=== PATIENT | male | born 1965 | race Caucasian/White ===

== ENCOUNTER 2019-04-13 11:23 | Inpatient (IN) | payer MEDICAID ==
[~2019-04-13] VITALS: Ht 172.7 cm; Wt 68.6 kg
[~2019-04-13 11:23] MED LIST: MOME17SP BOTHNARES; rocuronium 10mg/ml inj IV ONE
[2019-04-13] MEDS ORDERED: normal saline 1000ML IV soln IVB ONE (11:30)
[2019-04-13] MEDS ORDERED: methylPREDNISolone sod succ 125mg/2ml vial IV ONE (11:30)
[2019-04-13] MEDS ORDERED: albuterol 2.5 MG/3 ML nebule CONTNEB PRN (11:35)
--- NOTE | 2019-04-13 11:41 | NUR ---
Rt at bedside,patient receiving breathing treatment.Hold off intubation per Dr. Mccloud.
[2019-04-13 11:55] LABS: BASOPHILS # (AUTO) 0.1 X10'3 (0-0.2); BASOPHILS % (AUTO) 0.9 % (0-1); EOSINOPHILS # (AUTO) 0.1 X10'3 (0-0.9); EOSINOPHILS % (AUTO) 1.6 % (0-6); HEMATOCRIT 47.4 % (42.0-52.0); HEMOGLOBIN 15.8 g/dl (14.0-17.9); LYMPHOCYTES % (AUTO) 43.1 % (21-51); MEAN CORPUSCULAR HEMOGLOBIN 31.7 PG (27.0-31.0); MEAN CORPUSCULAR HGB CONC 33.2 g/dL (33.0-36.5); MEAN CORPUSCULAR VOLUME 95.4 FL (78-98); MEAN PLATELET VOLUME 9.1 FL (7.4-10.4); MONOCYTES # (AUTO) 0.9 X10'3 (0-0.9); MONOCYTES % (AUTO) 9.3 % (2-12); NEUTROPHILS # (AUTO) 4.1 X10'3 (1.8-7.7); NEUTROPHILS % (AUTO) 45.1 % (42-75); PLATELET COUNT 230 X10'3 (140-440); RED BLOOD COUNT 4.97 X10'6 (4.70-6.10); RED CELL DISTRIBUTION WIDTH 14.3 % (11.5-14.5); WHITE BLOOD COUNT 9.2 X10'3 (4.5-11.0)
[2019-04-13 11:55] LABS: ABG BASE EXCESS -0.2 mmol/L (-2.0-3.0); ABG HCO3 25.1 mmol/L (22.0-26.0); ABG OXYGEN SATURATION 91.9 % (95-98); ABG PCO2 (T) 43.3 mmHg (35.0-45.0); ABG PH (T) 7.381 (7.350-7.450); ABG PO2 (T) 62.9 mmHg (83-108); ALLEN'S TEST Positive; FCOHb 2.3 % (0.5-1.5); FLOW 8 L/min; FMetHb 0.3 % (0.3-1.12); FO2Hb 89.5 % (94-100); TOTAL HEMOGLOBIN 14.9 G/dl (14.0-17.9)
--- NOTE | 2019-04-13 11:56 | NUR ---
patient started on bipap, and Dr. Mccloud at bedside. Addendum: 04/13/19 at 1202 by DANITZA patient on cpap,fio2 50% sating 100%.
--- NOTE | 2019-04-13 12:00 | NUR ---
Rt at bedside.
[2019-04-13 12:08] LABS: PARTIAL THROMBOPLASTIN TIME 25 SECONDS (22-32)
[2019-04-13] MEDS ORDERED: LIDOcaine 1% w/EPI 1:200,000 injection 10mL vial IM ONE (12:25)
[2019-04-13] MEDS ORDERED: ketamine 50 mg/ml 10ml vial IV ONE (12:25)
--- NOTE | 2019-04-13 12:31 | NUR ---
PATIENT'S : SUKUMAR [phone]
[2019-04-13] MEDS ORDERED: LIDOcaine 1% w/epiNEPHrine 1:200,000 30ml vial IM ONE (12:35)
[2019-04-13] MEDS ORDERED: LORazepam 2 mg/ml vial IV ONE (12:35)
[2019-04-13 12:37] LABS: ALANINE AMINOTRANSFERASE 240 U/L (12-78); ALBUMIN 3.3 G/DL (3.4-5.0); ALBUMIN/GLOBULIN RATIO 0.6 (1.1-1.5); ALKALINE PHOSPHATASE 218 IU/L (46-116); ANION GAP 11 (8-16); ASPARTATE AMINO TRANSFERASE 163 U/L (10-37); BILIRUBIN,TOTAL 0.2 MG/DL (0.1-1.0); BLOOD UREA NITROGEN 19 MG/DL (7-18); BUN/CREATININE RATIO 19.2 (5.4-32.0); CALCIUM 9.1 MG/DL (8.5-10.1); CHLORIDE 102 MMOL/L (99-107); CREATININE 0.99 MG/DL (0.60-1.10); GLUCOSE 127 MG/DL (70-104); SODIUM 141 MMOL/L (135-145); TOTAL CARBON DIOXIDE 27.7 MMOL/L (24-32); TOTAL PROTEIN 8.9 G/DL (6.4-8.2); eGFR 78 ML/MIN
--- NOTE | 2019-04-13 12:37 | NUR ---
Dr. Mccloud,RT at bedside.
--- NOTE | 2019-04-13 13:35 | NUR ---
I have reviewed and agree with all medications administered and interventions performed by [facility] Student Michael Rojas Addendum: 04/13/19 at 1336 by Radha Nazario RT Amended: Links added.
--- NOTE | 2019-04-13 14:29 | NUR ---
Patient on chest tube,low intermittent suction.asleep,Respirations regular,sating 97% on 2L.
[2019-04-13] MEDS ORDERED: acetaminophen 650mg rectal suppository RC PRN (15:10)
[2019-04-13] MEDS ORDERED: acetaminophen 325mg tablet PO PRN ×2 (15:10)
[2019-04-13] MEDS ORDERED: potassium Cl 20 mEq SR tablet PO PRN ×2 (15:10)
[2019-04-13] MEDS ORDERED: magnesium 4gm in 100ml NS 100 ML IV PRN (15:10)
[2019-04-13] MEDS ORDERED: mag hydrox/Alum hydrox/simeth 30ml oral suspension PO PRN (15:10)
[2019-04-13] MEDS ORDERED: morphine 2 MG/ML inj. syringe IV PRN ×2 (15:10)
[2019-04-13] MEDS ORDERED: magnesium 2GM in 50ml NS 50 ML IV PRN (15:10)
[2019-04-13] MEDS ORDERED: magnesium Cl slow-release 64mg tablet PO PRN (15:10)
[2019-04-13] MEDS ORDERED: HYDROcodone/acetaminophen 5mg/325mg tablet PO PRN (15:10)
[2019-04-13] MEDS: K and/or MAG REPLACEMENT MC SCH (15:10)
[2019-04-13] MEDS ORDERED: diphenhydrAMINE 25mg capsule PO PRN (15:10)
[2019-04-13] MEDS ORDERED: potassium CL 10mEq/100ml bag 100 ML IV PRN ×2 (15:10)
[2019-04-13] MEDS ORDERED: bisacodyl 10mg suppository rectal RC PRN (15:10)
[2019-04-13] MEDS: normal saline 1000ml 1,000 ML IV SCH (15:29)
[2019-04-13] MEDS: levoFLOXACIN-Levaquin 750MG/D5 150 ML IV SCH (15:29)
--- NOTE | 2019-04-13 15:35 | NUR ---
technology applications consultant at bedside.
[2019-04-13] MEDS: ondansetron/PF 4mg/2ml inj IV PRN (15:50)
[2019-04-13] MEDS ORDERED: NO HOME MEDS (16:12)
[2019-04-13] MEDS ORDERED: iohexol 350MG/ML 100ml bottle IV ONE (16:23)
--- NOTE | 2019-04-13 16:47 | NUR ---
PATIENT TO CT ACCOMPANIED BY RK LUNDBERG.
--- NOTE | 2019-04-13 17:21 | NUR ---
rECIEVED REPORT FROM Nikita international bank manager nurse pt will transfer up to rm 1421P
[2019-04-13] MEDS: HYDROcodone/acetaminophen 10/325mg tab PO PRN ×2 (17:47→22:08)
--- NOTE | 2019-04-13 17:58 | NUR ---
pt arrived to floor via gureny from ER @ 8036 A&Ox4 R CT in place c/o 11/20 pain medicated for pain. Dinner tray ordered. laying in POC
[2019-04-13 18:00] VITALS: BP 145/94
--- NOTE | 2019-04-13 18:19 | NUR ---
Problems reprioritized. Patient report given, questions answered & plan of care reviewed with JAQUELINE Goff.
--- NOTE | 2019-04-13 18:39 | NUR ---
Patient in room PCU 3016. I have received report from Genet Rojas RN and had the opportunity to ask questions and assume patient care.
[2019-04-13] MEDS: ipratropium/albuterol 3ml nebule NEB SCH ×2 (19:02→23:00)
[2019-04-13] MEDS: heparin, porcine 5000 units/ml vial SQ SCH (19:24)
[2019-04-13] MEDS: methylPREDNISolone sod succ 125mg/2ml vial IV SCH (19:25)
[2019-04-13 22:00] VITALS: BP 136/91
[2019-04-14] MEDS: normal saline 1000ml 1,000 ML IV SCH ×3 (01:38→20:23)
[2019-04-14] MEDS: methylPREDNISolone sod succ 125mg/2ml vial IV SCH ×4 (01:39→19:08)
[2019-04-14 02:02] LABS: CLARITY,URINE CLEAR (Clear); COLOR,URINE YELLOW (Yellow); GLUCOSE, URINE NEGATIVE (Neg); KETONES,URINE NEGATIVE (Neg); LEUKOCYTE ESTERASE ,URINE NEGATIVE (Neg); NITRITES, URINE NEGATIVE (Neg); OCCULT BLOOD,URINE NEGATIVE (Neg); PROTEIN,URINE NEGATIVE (Neg); UROBILINOGEN,URINE 0.2 E.U/dL (0.2-1.0)
[2019-04-14 02:07] LABS: UA COLLECTION TYPE NON-SPECIFIED
[2019-04-14 02:58] LABS: URINE AMPHETAMINE SCREEN POSITIVE (Neg); URINE BARBITUATE SCREEN NEGATIVE (Neg); URINE BENZODIAZEPINES SCREEN NEGATIVE (Neg); URINE CANNABINOID SCREEN POSITIVE (Neg); URINE COCAINE SCREEN NEGATIVE (Neg); URINE METHADONE SCREEN NEGATIVE (Neg); URINE OPIATE SCREEN POSITIVE (Neg); URINE PHENCYCLIDINE SCREEN NEGATIVE (Neg)
[2019-04-14] MEDS: ipratropium/albuterol 3ml nebule NEB SCH ×6 (03:00→23:00)
--- NOTE | 2019-04-14 05:15 | NUR ---
Orientee documentation: I have reviewed all interventions, assessments performed and documented by Vanita PARSONS. [place] Medication Administration: For this medication-pass time frame, all medication were reviewed, dispensed, administered and documented per hospital policy by Vanita PARSONS.
[2019-04-14 06:00] VITALS: BP 127/88
[2019-04-14 06:07] LABS: BASOPHILS # (AUTO) 0.1 X10'3 (0-0.2); BASOPHILS % (AUTO) 0.4 % (0-1); EOSINOPHILS % (AUTO) 0 % (0-6); HEMATOCRIT 44.2 % (42.0-52.0); HEMOGLOBIN 14.9 g/dl (14.0-17.9); LYMPHOCYTES # (AUTO) 1.2 X10'3 (1.1-4.8); LYMPHOCYTES % (AUTO) 8.5 % (21-51); MEAN CORPUSCULAR HEMOGLOBIN 31.6 PG (27.0-31.0); MEAN CORPUSCULAR HGB CONC 33.7 g/dL (33.0-36.5); MEAN PLATELET VOLUME 9.2 FL (7.4-10.4); MONOCYTES # (AUTO) 0.3 X10'3 (0-0.9); NEUTROPHILS # (AUTO) 12.7 X10'3 (1.8-7.7); NEUTROPHILS % (AUTO) 89.1 % (42-75); PLATELET COUNT 204 X10'3 (140-440); RED CELL DISTRIBUTION WIDTH 14.3 % (11.5-14.5); WHITE BLOOD COUNT 14.3 X10'3 (4.5-11.0)
--- NOTE | 2019-04-14 06:21 | NUR ---
Problems reprioritized. Patient report given, questions answered & plan of care reviewed with Cecilia RN.
[2019-04-14 06:43] LABS: HIV ANTIBODY 1&2 RAPID NON-REACTIVE (Neg)
[2019-04-14 06:52] LABS: ALANINE AMINOTRANSFERASE 193 U/L (12-78); ALBUMIN/GLOBULIN RATIO 0.6 (1.1-1.5); ALKALINE PHOSPHATASE 120 IU/L (46-116); ANION GAP 7 (8-16); ASPARTATE AMINO TRANSFERASE 110 U/L (10-37); BILIRUBIN,TOTAL 0.2 MG/DL (0.1-1.0); BLOOD UREA NITROGEN 17 MG/DL (7-18); BUN/CREATININE RATIO 20.7 (5.4-32.0); CALCIUM 8.9 MG/DL (8.5-10.1); CHLORIDE 102 MMOL/L (99-107); CHOL/HDL RATIO 2.4 (0.00-4.99); CHOLESTEROL 175 MG/DL (0-200); CREATININE 0.82 MG/DL (0.60-1.10); GLUCOSE 143 MG/DL (70-104); HDL CHOLESTEROL 72 MG/DL (35-60); LDL CHOLESTEROL 96 MG/DL (50-100); MAGNESIUM 1.7 MG/DL (1.5-2.4); PHOSPHORUS 3.6 MG/DL (2.3-4.5); SODIUM 139 MMOL/L (135-145); TOTAL PROTEIN 8.3 G/DL (6.4-8.2); TRIGLYCERIDES 53 MG/DL (20-135); eGFR > 90 ML/MIN
--- NOTE | 2019-04-14 06:52 | NUR ---
Patient in room U 3016. I have received report from JAQUELINE Goff and had the opportunity to ask questions and assume patient care. Pt sleeping. In no apparent distress. Will continue to monitor.
--- NOTE | 2019-04-14 07:45 | NUR ---
DR ALATORRE CONTACTED REGARDING PT CT DISCONNECTING FROM PT. RAPID CALLED. DR ALATORRE NOT INVOLVED WITH PT. WILL CALL DR DIAZ.
--- NOTE | 2019-04-14 07:46 | NUR ---
PAGER ID: [phone] MESSAGE: rapid called on [id number] Tyree chest tube disconnected. pt in distress. DENNYS BROWNING
--- NOTE | 2019-04-14 07:50 | NUR ---
DR DIAZ CALLED BACK SITUATION EXPLAINED. DR DIAZ STATED THAT DR HOLGUIN AND DR ALATORRE HAVE BEEN CONSULTED IN ER YESTERDAY.
[2019-04-14] MEDS: K and/or MAG REPLACEMENT MC SCH (08:00)
[2019-04-14] MEDS: HYDROcodone/acetaminophen 10/325mg tab PO PRN (08:10)
[2019-04-14] MEDS: heparin, porcine 5000 units/ml vial SQ SCH ×2 (08:15→19:09)
[2019-04-14] MEDS: levoFLOXACIN-Levaquin 750MG/D5 150 ML IV SCH (08:16)
[2019-04-14 11:00] VITALS: BP 127/85
--- NOTE | 2019-04-14 12:56 | NUR ---
Malnutrition consult: Pt seen at bedside reports UBW 140-150 lbs, current documented wt is 151 lbs however is a pt stated wt. Pt reports no wt loss of concern at this time and endorses a good appetite which is evident with documented 100% PO intake on heart healthy diet meeting nutrient needs. Pt with no significant decrease in muscle strength, edema, or visible fat/muscle wasting. Pt currently does not meet criteria for malnutrition. Pt reports no food allergies and states difficulty chewing d/t missing teeth. Pt agrees to soft to chew food. Pt states he isn't getting full from meals and agrees to double meat BIDLD, Greenlandic yogurt BIDBD, and cottage cheese QD with lunch for satiety. All food preferences d/w dietary. No documented LBM however pt denies constipation/diarrhea and reports LBM 04/13 [employer]. Will continue to follow. Addendum: 04/14/19 at [address] Amended: Links added.
--- NOTE | 2019-04-14 15:00 | NUR ---
Pt refused 1500 VS
--- NOTE | 2019-04-14 16:20 | NUR ---
Patient in room PCU 3016. I have received report from Cecilia PARSONS and had the opportunity to ask questions and assume patient care.
--- NOTE | 2019-04-14 16:21 | NUR ---
Problems reprioritized. Patient report given, questions answered & plan of care reviewed with JAQUELINE Martin.
[2019-04-14 18:00] VITALS: BP 162/83
--- NOTE | 2019-04-14 18:00 | NUR ---
Patient in room PCU 3016. I have received report from Mario PARSONS and had the opportunity to ask questions and assume patient care.
[2019-04-14] MEDS: lactobacillus rhamnosus 10,000 MMU CELLS/CAPSULE PO SCH (19:08)
[2019-04-14 22:00] VITALS: BP 122/65
[2019-04-15] MEDS: methylPREDNISolone sod succ 125mg/2ml vial IV SCH ×3 (01:04→15:03)
--- NOTE | 2019-04-15 02:00 | NUR ---
Refuses 0200 vital signs. Patient doesn't like to be bothered at night. Was able to give 0200 medication.
[2019-04-15] MEDS: ipratropium/albuterol 3ml nebule NEB SCH ×6 (03:00→23:00)
--- NOTE | 2019-04-15 05:31 | NUR ---
END NOC NOTE Patient slept well tonight, refused all respiratory treatments for the shift and 0200 vital signs. Will continue to monitor.
[2019-04-15 05:59] LABS: BASOPHILS % (AUTO) 0.1 % (0-1); EOSINOPHILS % (AUTO) 0 % (0-6); HEMATOCRIT 42.6 % (42.0-52.0); HEMOGLOBIN 14.2 g/dl (14.0-17.9); LYMPHOCYTES # (AUTO) 1.2 X10'3 (1.1-4.8); LYMPHOCYTES % (AUTO) 6.3 % (21-51); MEAN CORPUSCULAR HEMOGLOBIN 31.5 PG (27.0-31.0); MEAN CORPUSCULAR HGB CONC 33.3 g/dL (33.0-36.5); MEAN CORPUSCULAR VOLUME 94.4 FL (78-98); MEAN PLATELET VOLUME 9.5 FL (7.4-10.4); MONOCYTES # (AUTO) 0.4 X10'3 (0-0.9); MONOCYTES % (AUTO) 2.1 % (2-12); NEUTROPHILS # (AUTO) 17.8 X10'3 (1.8-7.7); NEUTROPHILS % (AUTO) 91.5 % (42-75); PLATELET COUNT 194 X10'3 (140-440); RED BLOOD COUNT 4.52 X10'6 (4.70-6.10); RED CELL DISTRIBUTION WIDTH 14.1 % (11.5-14.5); WHITE BLOOD COUNT 19.5 X10'3 (4.5-11.0)
[2019-04-15 06:00] VITALS: BP 121/80
--- NOTE | 2019-04-15 06:05 | NUR ---
Patient in room PCU 3016B. I have received report from Claire PARSONS and had the opportunity to ask questions and assume patient care.
[2019-04-15 06:41] LABS: ALANINE AMINOTRANSFERASE 142 U/L (12-78); ALBUMIN 2.7 G/DL (3.4-5.0); ALBUMIN/GLOBULIN RATIO 0.6 (1.1-1.5); ALKALINE PHOSPHATASE 90 IU/L (46-116); ANION GAP 4 (8-16); ASPARTATE AMINO TRANSFERASE 67 U/L (10-37); BILIRUBIN,TOTAL 0.3 MG/DL (0.1-1.0); BLOOD UREA NITROGEN 14 MG/DL (7-18); BUN/CREATININE RATIO 17.9 (5.4-32.0); CALCIUM 8.8 MG/DL (8.5-10.1); CHLORIDE 101 MMOL/L (99-107); CREATININE 0.78 MG/DL (0.60-1.10); GLUCOSE 140 MG/DL (70-104); MAGNESIUM 1.9 MG/DL (1.5-2.4); PHOSPHORUS 2.8 MG/DL (2.3-4.5); POTASSIUM 4.2 MMOL/L (3.5-5.1); SODIUM 135 MMOL/L (135-145); eGFR > 90 ML/MIN
--- NOTE | 2019-04-15 06:41 | NUR ---
Problems reprioritized. Patient report given, questions answered & plan of care reviewed with Griselda PARSONS.
[2019-04-15] MEDS: normal saline 1000ml 1,000 ML IV SCH (07:10)
[2019-04-15] MEDS: K and/or MAG REPLACEMENT MC SCH (08:00)
[2019-04-15] MEDS: heparin, porcine 5000 units/ml vial SQ SCH ×2 (08:26→19:56)
[2019-04-15] MEDS: lactobacillus rhamnosus 10,000 MMU CELLS/CAPSULE PO SCH ×2 (08:27→19:51)
[2019-04-15] MEDS: levoFLOXACIN-Levaquin 750MG/D5 150 ML IV SCH (08:27)
--- NOTE | 2019-04-15 10:57 | NUR ---
Order from Ayala Villegas for daily single view chest xrays while chest tube is in.
[2019-04-15 11:00] VITALS: BP 123/82
--- NOTE | 2019-04-15 11:31 | NUR ---
Paged hospitalist, Dr. Dionne CADENA daily CXR PAGER ID: [phone] MESSAGE: Anu x [phone]. RE Hortencia Clements 3016B. FYI new daily CXR resulted. Thank you!
[2019-04-15 12:20] LABS: HBSAG SCREEN Negative (Negative); HEP A AB, IGM Negative (Negative); HEP B CORE AB, IGM Negative (Negative); HEPATITIS C ANTIBODY >11.0 s/co ratio (0.0-0.9)
[2019-04-15 15:00] VITALS: BP 126/76
[2019-04-15] MEDS: HYDROcodone/acetaminophen 10/325mg tab PO PRN (15:03)
--- NOTE | 2019-04-15 18:00 | NUR ---
Patient in room PCU 3016. I have received report from Griselda PARSONS and had the opportunity to ask questions and assume patient care.
--- NOTE | 2019-04-15 18:05 | NUR ---
Problems reprioritized. Patient report given, questions answered & plan of care reviewed with Harper PARSONS.
--- NOTE | 2019-04-15 18:23 | NUR ---
New hire documentation: I have reviewed and agree with all interventions, assessments performed and documented by Anu PARSONS.
[2019-04-15 22:00] VITALS: BP 159/94
[2019-04-16] VITALS: BP 143/99
[2019-04-16] MEDS: methylPREDNISolone sod succ 125mg/2ml vial IV SCH ×3 (00:07→15:21)
[2019-04-16] MEDS: normal saline 1000ml 1,000 ML IV SCH ×2 (00:53→21:10)
[2019-04-16] MEDS: ipratropium/albuterol 3ml nebule NEB SCH ×6 (03:00→23:00)
--- NOTE | 2019-04-16 05:22 | NUR ---
END NOC NOTE Patient slept well tonight, only agreed to 2200 vitals, HR spiked to 140s when patient stood up at the side of the bed to use the urinal. Will continue to monitor.
[2019-04-16 06:00] VITALS: BP 152/99
[2019-04-16 06:10] LABS: BASOPHILS % (AUTO) 0.2 % (0-1); EOSINOPHILS % (AUTO) 0 % (0-6); HEMATOCRIT 43.3 % (42.0-52.0); HEMOGLOBIN 14.3 g/dl (14.0-17.9); LYMPHOCYTES % (AUTO) 5.9 % (21-51); MEAN CORPUSCULAR HEMOGLOBIN 31.2 PG (27.0-31.0); MEAN CORPUSCULAR VOLUME 94.5 FL (78-98); MEAN PLATELET VOLUME 9.3 FL (7.4-10.4); MONOCYTES # (AUTO) 0.5 X10'3 (0-0.9); MONOCYTES % (AUTO) 2.9 % (2-12); NEUTROPHILS # (AUTO) 15.9 X10'3 (1.8-7.7); PLATELET COUNT 178 X10'3 (140-440); RED BLOOD COUNT 4.58 X10'6 (4.70-6.10); RED CELL DISTRIBUTION WIDTH 14.1 % (11.5-14.5); WHITE BLOOD COUNT 17.4 X10'3 (4.5-11.0)
--- NOTE | 2019-04-16 06:20 | NUR ---
Patient in room PCU 3016Y. I have received report from Harper PARSONS and had the opportunity to ask questions and assume patient care. Patient laying in bed, eyes closed. Chest tube to suction at 10. IV fluids infusing @ 50mL/hr.
--- NOTE | 2019-04-16 06:32 | NUR ---
Problems reprioritized. Patient report given, questions answered & plan of care reviewed with Griselda PARSONS.
[2019-04-16 06:39] LABS: ALANINE AMINOTRANSFERASE 186 U/L (12-78); ALBUMIN 2.7 G/DL (3.4-5.0); ALBUMIN/GLOBULIN RATIO 0.6 (1.1-1.5); ALKALINE PHOSPHATASE 93 IU/L (46-116); ANION GAP 3 (8-16); ASPARTATE AMINO TRANSFERASE 103 U/L (10-37); BILIRUBIN,TOTAL 0.3 MG/DL (0.1-1.0); BLOOD UREA NITROGEN 17 MG/DL (7-18); BUN/CREATININE RATIO 21.8 (5.4-32.0); CALCIUM 8.6 MG/DL (8.5-10.1); CHLORIDE 103 MMOL/L (99-107); CREATININE 0.78 MG/DL (0.60-1.10); GLUCOSE 131 MG/DL (70-104); MAGNESIUM 1.9 MG/DL (1.5-2.4); POTASSIUM 4.5 MMOL/L (3.5-5.1); SODIUM 139 MMOL/L (135-145); TOTAL PROTEIN 7.1 G/DL (6.4-8.2); eGFR > 90 ML/MIN
[2019-04-16] MEDS: K and/or MAG REPLACEMENT MC SCH (08:00)
[2019-04-16] MEDS: levoFLOXACIN-Levaquin 750MG/D5 150 ML IV SCH (08:11)
[2019-04-16] MEDS: heparin, porcine 5000 units/ml vial SQ SCH ×2 (08:12→21:08)
[2019-04-16] MEDS: lactobacillus rhamnosus 10,000 MMU CELLS/CAPSULE PO SCH ×2 (08:12→21:08)
[2019-04-16] MEDS: HYDROcodone/acetaminophen 10/325mg tab PO PRN (08:12)
[2019-04-16 11:00] VITALS: BP 141/95
[2019-04-16 15:00] VITALS: BP 153/94
--- NOTE | 2019-04-16 17:49 | NUR ---
New hire documentation: I have reviewed and agree with all interventions, assessments performed and documented by Anu PARSONS.
[2019-04-16 18:00] VITALS: BP 144/97
--- NOTE | 2019-04-16 18:00 | NUR ---
Patient in room PCU 3016. I have received report from Griselda PARSONS and had the opportunity to ask questions and assume patient care.
--- NOTE | 2019-04-16 18:12 | NUR ---
Problems reprioritized. Patient report given, questions answered & plan of care reviewed with Harper PARSONS.
[2019-04-17] VITALS: BP 155/127
[2019-04-17] MEDS: methylPREDNISolone sod succ 125mg/2ml vial IV SCH ×3 (00:20→15:42)
[2019-04-17] MEDS: ipratropium/albuterol 3ml nebule NEB SCH ×6 (03:00→23:00)
[2019-04-17 05:25] LABS: BASOPHILS % (AUTO) 0.1 % (0-1); EOSINOPHILS % (AUTO) 0 % (0-6); HEMATOCRIT 44.1 % (42.0-52.0); HEMOGLOBIN 14.8 g/dl (14.0-17.9); LYMPHOCYTES # (AUTO) 1.2 X10'3 (1.1-4.8); LYMPHOCYTES % (AUTO) 7.7 % (21-51); MEAN CORPUSCULAR HEMOGLOBIN 31.3 PG (27.0-31.0); MEAN CORPUSCULAR HGB CONC 33.6 g/dL (33.0-36.5); MEAN CORPUSCULAR VOLUME 93.2 FL (78-98); MEAN PLATELET VOLUME 9.4 FL (7.4-10.4); MONOCYTES # (AUTO) 0.4 X10'3 (0-0.9); MONOCYTES % (AUTO) 2.7 % (2-12); NEUTROPHILS # (AUTO) 13.6 X10'3 (1.8-7.7); NEUTROPHILS % (AUTO) 89.5 % (42-75); PLATELET COUNT 182 X10'3 (140-440); RED BLOOD COUNT 4.73 X10'6 (4.70-6.10); RED CELL DISTRIBUTION WIDTH 14.2 % (11.5-14.5); WHITE BLOOD COUNT 15.2 X10'3 (4.5-11.0)
[2019-04-17 06:00] VITALS: BP 141/97
[2019-04-17 06:01] LABS: ALANINE AMINOTRANSFERASE 194 U/L (12-78); ALBUMIN 2.7 G/DL (3.4-5.0); ALBUMIN/GLOBULIN RATIO 0.6 (1.1-1.5); ALKALINE PHOSPHATASE 93 IU/L (46-116); ANION GAP 8 (8-16); ASPARTATE AMINO TRANSFERASE 94 U/L (10-37); BILIRUBIN,TOTAL 0.3 MG/DL (0.1-1.0); BLOOD UREA NITROGEN 20 MG/DL (7-18); BUN/CREATININE RATIO 24.7 (5.4-32.0); CALCIUM 8.5 MG/DL (8.5-10.1); CHLORIDE 101 MMOL/L (99-107); CREATININE 0.81 MG/DL (0.60-1.10); GLUCOSE 144 MG/DL (70-104); MAGNESIUM 1.8 MG/DL (1.5-2.4); PHOSPHORUS 2.8 MG/DL (2.3-4.5); POTASSIUM 4.4 MMOL/L (3.5-5.1); SODIUM 137 MMOL/L (135-145); TOTAL CARBON DIOXIDE 28.4 MMOL/L (24-32); TOTAL PROTEIN 7.1 G/DL (6.4-8.2); eGFR > 90 ML/MIN
--- NOTE | 2019-04-17 06:21 | NUR ---
Problems reprioritized. Patient report given, questions answered & plan of care reviewed with Pilar RN, Jessica RN.
--- NOTE | 2019-04-17 06:32 | NUR ---
Patient in room PCU 3016. I have received report from JAQUELINE Gonzalez and had the opportunity to ask questions and assume patient care.
--- NOTE | 2019-04-17 06:41 | NUR ---
Patient in room [facility] 3016. I have received report from Harper PARSONS and had the opportunity to ask questions and assume patient care. Patient awake in bed with no complaints at this time. All immediate needs met. Addendum: 04/17/19 at 1818 by Jessica Barros RN Problems reprioritized. Patient report given, questions answered & plan of care reviewed with JAQUELINE Gonzalez.
[2019-04-17] MEDS: heparin, porcine 5000 units/ml vial SQ SCH ×2 (08:00→20:30)
[2019-04-17] MEDS: levoFLOXACIN-Levaquin 750MG/D5 150 ML IV SCH (08:27)
[2019-04-17] MEDS: lactobacillus rhamnosus 10,000 MMU CELLS/CAPSULE PO SCH ×2 (08:29→20:30)
[2019-04-17] MEDS: K and/or MAG REPLACEMENT MC SCH (08:38)
[2019-04-17 11:00] VITALS: BP 146/100
[2019-04-17] MEDS: normal saline 1000ml 1,000 ML IV SCH (11:44)
[2019-04-17] MEDS ORDERED: famotidine/PF 10 mg/ml inj IV ONE (13:40)
[2019-04-17 15:00] VITALS: BP 127/100
[2019-04-17 18:00] VITALS: BP 138/90
--- NOTE | 2019-04-17 18:00 | NUR ---
Patient in room PCU 3016. I have received report from Jessica PARSONS and Pilar RN and had the opportunity to ask questions and assume patient care.
--- NOTE | 2019-04-17 18:25 | NUR ---
Problems reprioritized. Patient report given, questions answered & plan of care reviewed with Harper PARSONS. Patient stable at transfer of care.
--- NOTE | 2019-04-17 18:25 | NUR ---
[place]rientee documentation: I have reviewed and agree with all interventions, assessments performed and documented by JAQUELINE Lopez. [place] Medication Administration: For this medication-pass time frame, all medication were reviewed, dispensed, administered and documented per hospital policy by JAQUELINE Lopez.
[2019-04-17] MEDS: HYDROcodone/acetaminophen 10/325mg tab PO PRN (20:31)
[2019-04-18] VITALS (14 sets, daily range): BP systolic 105–182; BP diastolic 65–130
[2019-04-18] MEDS: methylPREDNISolone sod succ 125mg/2ml vial IV SCH ×4 (00:11→23:43)
[2019-04-18] MEDS: ipratropium/albuterol 3ml nebule NEB SCH ×5 (03:00→23:00)
--- NOTE | 2019-04-18 05:02 | NUR ---
END NOC NOTE Patient refused 2200 and 0200 vitals. Patient is nervous about procedure the procedure today in AM. Slept well tonight. Will continue to monitor.
[2019-04-18 05:28] LABS: BASOPHILS % (AUTO) 0.1 % (0-1); EOSINOPHILS % (AUTO) 0 % (0-6); HEMOGLOBIN 15.4 g/dl (14.0-17.9); LYMPHOCYTES # (AUTO) 1.2 X10'3 (1.1-4.8); MEAN CORPUSCULAR HEMOGLOBIN 31.4 PG (27.0-31.0); MEAN CORPUSCULAR HGB CONC 33.4 g/dL (33.0-36.5); MEAN CORPUSCULAR VOLUME 94.1 FL (78-98); MEAN PLATELET VOLUME 9.4 FL (7.4-10.4); MONOCYTES # (AUTO) 0.5 X10'3 (0-0.9); MONOCYTES % (AUTO) 4.1 % (2-12); NEUTROPHILS # (AUTO) 11.5 X10'3 (1.8-7.7); NEUTROPHILS % (AUTO) 86.8 % (42-75); PLATELET COUNT 186 X10'3 (140-440); RED BLOOD COUNT 4.89 X10'6 (4.70-6.10); WHITE BLOOD COUNT 13.3 X10'3 (4.5-11.0)
[2019-04-18] MEDS: normal saline 1000ml 1,000 ML IV SCH ×2 (06:17→14:17)
[2019-04-18 06:19] LABS: ALANINE AMINOTRANSFERASE 209 U/L (12-78); ALBUMIN 2.8 G/DL (3.4-5.0); ALBUMIN/GLOBULIN RATIO 0.6 (1.1-1.5); ALKALINE PHOSPHATASE 102 IU/L (46-116); ANION GAP 4 (8-16); ASPARTATE AMINO TRANSFERASE 77 U/L (10-37); BILIRUBIN,TOTAL 0.3 MG/DL (0.1-1.0); BLOOD UREA NITROGEN 20 MG/DL (7-18); BUN/CREATININE RATIO 23.3 (5.4-32.0); CALCIUM 8.6 MG/DL (8.5-10.1); CHLORIDE 101 MMOL/L (99-107); CREATININE 0.86 MG/DL (0.60-1.10); GLUCOSE 139 MG/DL (70-104); PHOSPHORUS 3.2 MG/DL (2.3-4.5); POTASSIUM 5.1 MMOL/L (3.5-5.1); SODIUM 136 MMOL/L (135-145); TOTAL CARBON DIOXIDE 31.4 MMOL/L (24-32); TOTAL PROTEIN 7.4 G/DL (6.4-8.2); eGFR > 90 ML/MIN
--- NOTE | 2019-04-18 06:27 | NUR ---
Problems reprioritized. Patient report given, questions answered & plan of care reviewed with Pilar PARSONS.
--- NOTE | 2019-04-18 06:44 | NUR ---
Patient in room PCU 3016. I have received report from Harper PARSONS and had the opportunity to ask questions and assume patient care. Patient awake in bed. All immediate needs met at this time.
[2019-04-18] MEDS: heparin, porcine 5000 units/ml vial SQ SCH ×2 (07:02→20:00)
--- NOTE | 2019-04-18 07:13 | NUR ---
Patient refused 0600 vitals.
[2019-04-18] MEDS: lactobacillus rhamnosus 10,000 MMU CELLS/CAPSULE PO SCH ×2 (07:24→19:40)
[2019-04-18] MEDS: levoFLOXACIN-Levaquin 750MG/D5 150 ML IV SCH (07:25)
[2019-04-18] MEDS ORDERED: LIDOcaine 1% (10mg/ml) 2ml vial ONE (07:37)
[2019-04-18] MEDS: K and/or MAG REPLACEMENT MC SCH (08:00)
--- NOTE | 2019-04-18 08:21 | NUR ---
Called report to PACU.
--- NOTE | 2019-04-18 10:00 | NUR ---
Orientee documentation: I have reviewed and agree with all interventions, assessments performed and documented by JAQUELINE Farnsworth. [place]ee Medication Administration: For this medication-pass time frame, all medication were reviewed, dispensed, administered and documented per hospital policy by Daja PARSONS.
--- NOTE | 2019-04-18 10:30 | NUR ---
Patient to OR.
[2019-04-18] MEDS ORDERED: sevoflurane 250ml liquid IH ONE (11:09)
[2019-04-18] MEDS ORDERED: propofol 10mg/ml 20ml vial IV ONE (11:09)
[2019-04-18] MEDS ORDERED: ceFAZolin 1GM/D5W- ADD-VANTAGE 50 ML IV ONE (11:10)
[2019-04-18] MEDS ORDERED: midazolam 2 mg/2 ml injection ONE (11:11)
[2019-04-18] MEDS ORDERED: fentaNYL /PF 50mcg/ml 5ml ampule ONE (11:13)
[2019-04-18] MEDS ORDERED: potassium Cl 20mEq in D5-NS 1,000 ML IV SCH (13:27)
[2019-04-18] MEDS ORDERED: morphine 10mg/ml inj. ONE (13:29)
[2019-04-18] MEDS ORDERED: HYDROmorphone 1 mg/ml syringe IV PRN (13:30)
[2019-04-18] MEDS ORDERED: naloxone 0.4 mg/ml inj IV PRN ×2 (13:30→14:20)
[2019-04-18] MEDS ORDERED: HYDROcodone/acetaminophen 10/325mg tab PO PRN (13:30)
[2019-04-18] MEDS ORDERED: ondansetron/PF 4mg/2ml inj IV PRN (13:30)
[2019-04-18] MEDS ORDERED: morphine 4 MG/ML inj SYRINge IV PRN ×2 (13:30)
[2019-04-18] MEDS ORDERED: metoclopramide 5 mg/ml inj IV PRN (13:30)
[2019-04-18] MEDS ORDERED: CADD PCA waste documentation MC PRN ×2 (13:30→14:20)
[2019-04-18] MEDS ORDERED: albuterol 2.5 MG/3 ML nebule NEB PRN (13:30)
[2019-04-18] MEDS ORDERED: sugammadex 200mg/2ml injection IV ONE (13:30)
[2019-04-18] MEDS ORDERED: ketamine 50mg/5ml syringe ONE (13:39)
--- NOTE | 2019-04-18 14:07 | NUR ---
Initial: Pt admit w/ pneumothorax positive for meth and opiates. 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 LBM 04/17. Pt 100% meals prior to OR. Will monitor for additional protein needs pending PO post-op. Rec: 1. continue heart healthy diet per MD post-op 2. monitor for ONS needs pending PO post-op 3. routine bowel care 4. wt per rx Addendum: 04/18/19 at [address] Amended: Links added.
[2019-04-18] MEDS ORDERED: hydrALAZINE 20mg/ml inj. IV PRN (14:15)
[2019-04-18] MEDS: HYDROmorphone/NS 1 mg/ml CADD 50 ML IV SCH ×2 (14:20→15:00)
[2019-04-18] MEDS ORDERED: glycopyrrolate 0.2mg/ml inj ONE (14:23)
[2019-04-18] MEDS ORDERED: dexamethasone sod phosphate 4mg/ml inj. ONE (14:23)
[2019-04-18] MEDS ORDERED: ondansetron/PF 4mg/2ml inj ONE (14:23)
[2019-04-18] MEDS: ketorolac trometh. 30mg/ml inj. IV SCH ×2 (14:23→19:40)
[2019-04-18] MEDS ORDERED: neostigmine methylsulfate 1 MG/ML 10ml vial ONE (14:23)
[2019-04-18] MEDS ORDERED: LIDOcaine 2% (20mg/ml) 5ml vial ONE (14:23)
[2019-04-18] MEDS ORDERED: ePHEDrine 50MG/ML INJ. ONE (14:23)
[2019-04-18] MEDS ORDERED: fentaNYL/PF 50MCG/1 ML 2ML syringe ONE (14:24)
[2019-04-18 14:40] LABS: ABG BASE EXCESS -1.7 mmol/L (-2.0-3.0); ABG HCO3 25.3 mmol/L (22.0-26.0); ABG OXYGEN SATURATION 99.1 % (95-98); ABG PCO2 (T) 51.3 mmHg (35.0-45.0); ABG PH (T) 7.311 (7.350-7.450); ABG PO2 (T) 159.1 mmHg (83-108); FCOHb 0.8 % (0.5-1.5); FLOW 9 L/min; FMetHb 0.3 % (0.3-1.12); TOTAL HEMOGLOBIN 15.5 G/dl (14.0-17.9)
[2019-04-18] MEDS ORDERED: morphine/PF injection 20 MG, BUPIVAcaine 0.5% inj/PF 250 MG in normal saline 250ml IV s... IV SCH (14:45)
[2019-04-18] MEDS ORDERED: naloxone 2mg/2ml inj 1.3 MG in normal saline 500ml IV soln 500 ML IV PRN (14:45)
[2019-04-18] MEDS ORDERED: [UNRECOGNIZED DRUG - OTHER] IV SCH (15:01)
[2019-04-18] MEDS ORDERED: MORPHINE IV SCH (15:01)
[2019-04-18] MEDS ORDERED: BUPIVACAINE IV SCH (15:01)
[2019-04-18] MEDS ORDERED: NORepinephrine 8mg/ 250ml NS 250 ML IV SCH (15:10)
[2019-04-18] MEDS: ceFAZolin 1GM/D5W- ADD-VANTAGE 50 ML IV SCH ×2 (15:34→23:43)
[2019-04-18 15:43] LABS: HEMOGLOBIN 13.3 g/dl (14.0-17.9); MEAN CORPUSCULAR HEMOGLOBIN 30.8 PG (27.0-31.0); MEAN CORPUSCULAR HGB CONC 32.5 g/dL (33.0-36.5); MEAN CORPUSCULAR VOLUME 94.7 FL (78-98); MEAN PLATELET VOLUME 9.1 FL (7.4-10.4); PLATELET COUNT 197 X10'3 (140-440); RED BLOOD COUNT 4.33 X10'6 (4.70-6.10); RED CELL DISTRIBUTION WIDTH 13.8 % (11.5-14.5); WHITE BLOOD COUNT 18.4 X10'3 (4.5-11.0)
[2019-04-18] MEDS ORDERED: ceFAZolin inj. 1,000 MG in dextrose 5%-water 50ml 50 ML IV SCH (16:00)
[2019-04-18] MEDS: morphine/PF injection 8 MG, BUPIVAcaine 0.5% inj/PF 100 MG in normal saline 100ml IV so... IV SCH (16:14)
--- NOTE | 2019-04-18 16:54 | NUR ---
Received pt straight from OR @1400. Pt in severe pain with BP >180s. 1mg dilaudid and 10 mg hydralazine administered. Anesthesiologist to bedside to place epidural. Epidural placed successfully. ABG drawn. O2 decreased and placed on NC. CADD not administered due to epidural placement. BP trending down after epidural placement, pt appears calm. CT output 400cc. H/H drawn and stable. Per Dr. Waldron, started levophed at 2mcg for mild hypotension. Able to turn off after 3 hrs. Pt mildly uncomfortable at site of chest tubes but responds appropriately and follows commands.
--- NOTE | 2019-04-18 18:31 | NUR ---
Problems reprioritized. Patient report given, questions answered & plan of care reviewed with JAQUELINE Henriquez.
--- NOTE | 2019-04-18 18:34 | NUR ---
Patient in room ICU 2038. I have received report from Ericka PARSONS, and had the opportunity to ask questions and assume patient care.
--- NOTE | 2019-04-18 19:30 | NUR ---
PT resting in bed with no s/s of distress noted at this time. VSS. PT receiving 1 L O2 to NC, tolerating well. O2 sat >94%. PT has Epidural for pain control, has been effective thus far. CTx2 to RT chest with sanguineous drainage noted in tubing. Gary in place draining to gravity. Bed is locked and low. Call light is within reach. Will continue to monitor.
[2019-04-18] MEDS: gabapentin 300mg capsule PO SCH (19:40)
[2019-04-18] MEDS: docusate sod 100mg capsule PO SCH (19:41)
[2019-04-18] MEDS: sennosides/docusate sodium tablet PO SCH (19:42)
--- NOTE | 2019-04-18 21:14 | NUR ---
DR Waldron called to ask if he wanted 2000 dose of Heparin given or held, reported lab values and CT output for last 3 hrs, Order received to Hold dose for tonight. Also informed him of PT potassium level of 5.1 and he has D5 1/2NS with 20Meq of K running, order received to change fluids to D5 1/2 NS. Also informed him of PT 2100 blood sugar of 226, or received to NOT start the hyperglycemic protocol and to reduce Solumedrol from 60mg to 30mg. Will continue to monitor.
[2019-04-18] MEDS: dextrose 5%-1/2 normal saline 1,000 ML IV SCH (21:29)
--- NOTE | 2019-04-18 23:30 | NUR ---
PT is sleeping with no s/s of distress noted at this time. VSS. Bed is locked and low. Call light is within reach. Will continue to monitor.
[2019-04-19] VITALS (24 sets, daily range): BP systolic 95–139; BP diastolic 60–94
[2019-04-19] MEDS: ketorolac trometh. 30mg/ml inj. IV SCH ×4 (01:56→19:33)
[2019-04-19] MEDS: ipratropium/albuterol 3ml nebule NEB SCH ×6 (03:00→23:00)
[2019-04-19 03:28] LABS: BASOPHILS % (AUTO) 0 % (0-1); EOSINOPHILS % (AUTO) 0 % (0-6); HEMATOCRIT 40.4 % (42.0-52.0); HEMOGLOBIN 13.4 g/dl (14.0-17.9); LYMPHOCYTES # (AUTO) 0.8 X10'3 (1.1-4.8); MEAN CORPUSCULAR HEMOGLOBIN 31.1 PG (27.0-31.0); MEAN CORPUSCULAR HGB CONC 33.1 g/dL (33.0-36.5); MEAN CORPUSCULAR VOLUME 93.9 FL (78-98); MEAN PLATELET VOLUME 9.3 FL (7.4-10.4); MONOCYTES # (AUTO) 1.3 X10'3 (0-0.9); MONOCYTES % (AUTO) 8.2 % (2-12); NEUTROPHILS # (AUTO) 14.3 X10'3 (1.8-7.7); NEUTROPHILS % (AUTO) 86.8 % (42-75); PLATELET COUNT 197 X10'3 (140-440); RED BLOOD COUNT 4.31 X10'6 (4.70-6.10); RED CELL DISTRIBUTION WIDTH 14.2 % (11.5-14.5); WHITE BLOOD COUNT 16.5 X10'3 (4.5-11.0)
[2019-04-19 03:44] LABS: ALANINE AMINOTRANSFERASE 145 U/L (12-78); ALBUMIN 2.3 G/DL (3.4-5.0); ALBUMIN/GLOBULIN RATIO 0.6 (1.1-1.5); ALKALINE PHOSPHATASE 73 IU/L (46-116); ANION GAP 3 (8-16); ASPARTATE AMINO TRANSFERASE 54 U/L (10-37); BILIRUBIN,TOTAL 0.5 MG/DL (0.1-1.0); BLOOD UREA NITROGEN 18 MG/DL (7-18); BUN/CREATININE RATIO 26.5 (5.4-32.0); CALCIUM 7.7 MG/DL (8.5-10.1); CHLORIDE 101 MMOL/L (99-107); CREATININE 0.68 MG/DL (0.60-1.10); GLUCOSE 139 MG/DL (70-104); MAGNESIUM 1.9 MG/DL (1.5-2.4); PHOSPHORUS 3.7 MG/DL (2.3-4.5); POTASSIUM 4.8 MMOL/L (3.5-5.1); SODIUM 136 MMOL/L (135-145); TOTAL CARBON DIOXIDE 31.6 MMOL/L (24-32); eGFR > 90 ML/MIN
[2019-04-19] MEDS: morphine/PF injection 8 MG, BUPIVAcaine 0.5% inj/PF 100 MG in normal saline 100ml IV so... IV SCH (05:12)
--- NOTE | 2019-04-19 06:26 | NUR ---
Problems reprioritized. Patient report given, questions answered & plan of care reviewed with Ericka PARSONS.
--- NOTE | 2019-04-19 06:35 | NUR ---
Patient in room ICU 2038. I have received report from JAQUELINE Henriquez and had the opportunity to ask questions and assume patient care.
[2019-04-19] MEDS: ceFAZolin 1GM/D5W- ADD-VANTAGE 50 ML IV SCH ×2 (07:38→15:09)
[2019-04-19] MEDS: levoFLOXACIN-Levaquin 750MG/D5 150 ML IV SCH (07:39)
[2019-04-19] MEDS: docusate sod 100mg capsule PO SCH ×2 (07:40→19:34)
[2019-04-19] MEDS: gabapentin 300mg capsule PO SCH ×2 (07:40→19:34)
[2019-04-19] MEDS: methylPREDNISolone sod succ 125mg/2ml vial IV SCH ×2 (07:40→15:09)
[2019-04-19] MEDS: sennosides/docusate sodium tablet PO SCH ×2 (07:41→19:34)
[2019-04-19] MEDS: lactobacillus rhamnosus 10,000 MMU CELLS/CAPSULE PO SCH ×2 (07:41→19:34)
[2019-04-19] MEDS: K and/or MAG REPLACEMENT MC SCH (08:00)
[2019-04-19] MEDS: normal saline 1000ml 1,000 ML IV SCH (08:53)
[2019-04-19] MEDS: dextrose 5%-1/2 normal saline 1,000 ML IV SCH (09:55)
[2019-04-19 11:10] LABS: ABG BASE EXCESS 7.9 mmol/L (-2.0-3.0); ABG HCO3 34.7 mmol/L (22.0-26.0); ABG OXYGEN SATURATION 93.3 % (95-98); ABG PCO2 (T) 58.3 mmHg (35.0-45.0); ABG PH (T) 7.393 (7.350-7.450); ABG PO2 (T) 68.2 mmHg (83-108); ALLEN'S TEST Positive; FCOHb 1.1 % (0.5-1.5); FMetHb 0.3 % (0.3-1.12); PATIENT TEMPERATURE 37.2
[2019-04-19] MEDS ORDERED: morphine/PF injection 8 MG in normal saline 100ml IV soln 100 ML IV SCH (12:00)
[2019-04-19] MEDS ORDERED: sodium chloride 0.45% 1,000 ML IV SCH (16:45)
[2019-04-19] MEDS: morphine/PF injection 8 MG in normal saline 100ml IV soln 92 ML EPI SCH ×2 (16:51→23:25)
--- NOTE | 2019-04-19 18:25 | NUR ---
Problems reprioritized. Patient report given, questions answered & plan of care reviewed with JAQUELINE Henriquez.
--- NOTE | 2019-04-19 18:30 | NUR ---
Patient in room ICU 2038. I have received report from Ericka PARSONS, and had the opportunity to ask questions and assume patient care.
--- NOTE | 2019-04-19 19:15 | NUR ---
PT is sitting up in chair finishing dinner with no s/s of distress noted at this time. VSS. PT on RA and tolerating well. O2 sat >94%. PT has Epidural for pain control, has been effective. CTx2 to RT chest with sanguineous drainage noted in tubing. Gary in place draining to gravity. Bed is locked and low. Call light is within reach. Will continue to monitor.
[2019-04-20] VITALS (7 sets, daily range): BP systolic 104–126; BP diastolic 62–88
[2019-04-20] MEDS: methylPREDNISolone sod succ 125mg/2ml vial IV SCH ×3 (00:03→17:01)
[2019-04-20] MEDS: ceFAZolin 1GM/D5W- ADD-VANTAGE 50 ML IV SCH ×3 (00:03→17:00)
--- NOTE | 2019-04-20 00:53 | NUR ---
Went in PT RM to give 0000 meds, PT requested to shave. Assisted PT in sitting up in bed. Bedside table moved and mirror placed in PT view. PT shaved face. When getting PT cleaned up, Epidural wire was found to be disconnected from yelllow/clear plastic connector. Machinist Outside called and On-Call Anesthesiologist number obtained. Dr Pritchard contacted and informed of situation. Dr Pritchard instructed nursing to wipe down the Epidural wire with alcohol then re-connect and have Anesthesia assess in the morning. Catheter re-taped to PT, and educated PT on need be more cautious with movements and to call nursing for assistance. Will continue to monitor.
[2019-04-20] MEDS: ketorolac trometh. 30mg/ml inj. IV SCH ×4 (02:07→19:49)
[2019-04-20] MEDS: ipratropium/albuterol 3ml nebule NEB SCH ×5 (03:00→20:00)
--- NOTE | 2019-04-20 03:13 | NUR ---
While performing 0300 rounds, PT woke up agitated and took blood pressure cuff off and stated "I'm sick and tired of the god-damned thing going off every 60 minutes". Informed PT that even with blood pressure cuff off, nursing still has to come in hourly and check this chest tubes. PT's mood has been very labile throughout shift.
[2019-04-20] MEDS: normal saline 1000ml 1,000 ML IV SCH ×2 (04:53→14:17)
[2019-04-20 05:18] LABS: BASOPHILS % (AUTO) 0.1 % (0-1); EOSINOPHILS % (AUTO) 0 % (0-6); HEMATOCRIT 40.7 % (42.0-52.0); HEMOGLOBIN 13.4 g/dl (14.0-17.9); LYMPHOCYTES # (AUTO) 0.9 X10'3 (1.1-4.8); LYMPHOCYTES % (AUTO) 4.6 % (21-51); MEAN CORPUSCULAR HEMOGLOBIN 31.4 PG (27.0-31.0); MEAN CORPUSCULAR VOLUME 95.1 FL (78-98); MEAN PLATELET VOLUME 9.6 FL (7.4-10.4); MONOCYTES # (AUTO) 1.3 X10'3 (0-0.9); NEUTROPHILS # (AUTO) 16.8 X10'3 (1.8-7.7); NEUTROPHILS % (AUTO) 88.3 % (42-75); PLATELET COUNT 189 X10'3 (140-440); RED BLOOD COUNT 4.28 X10'6 (4.70-6.10); RED CELL DISTRIBUTION WIDTH 14.2 % (11.5-14.5)
[2019-04-20 05:27] LABS: ALANINE AMINOTRANSFERASE 144 U/L (12-78); ALBUMIN 2.5 G/DL (3.4-5.0); ALBUMIN/GLOBULIN RATIO 0.6 (1.1-1.5); ALKALINE PHOSPHATASE 136 IU/L (46-116); ANION GAP 3 (8-16); ASPARTATE AMINO TRANSFERASE 62 U/L (10-37); BILIRUBIN,TOTAL 0.3 MG/DL (0.1-1.0); BLOOD UREA NITROGEN 29 MG/DL (7-18); BUN/CREATININE RATIO 36.3 (5.4-32.0); CALCIUM 8.1 MG/DL (8.5-10.1); CHLORIDE 100 MMOL/L (99-107); GLUCOSE 171 MG/DL (70-104); MAGNESIUM 1.9 MG/DL (1.5-2.4); PHOSPHORUS 2.1 MG/DL (2.3-4.5); POTASSIUM 5.2 MMOL/L (3.5-5.1); SODIUM 136 MMOL/L (135-145); TOTAL CARBON DIOXIDE 33.2 MMOL/L (24-32); TOTAL PROTEIN 6.6 G/DL (6.4-8.2); eGFR > 90 ML/MIN
--- NOTE | 2019-04-20 06:15 | NUR ---
Patient in room ICU 2038. I have received report from JAQUELINE Henriquez and had the opportunity to ask questions and assume patient care.
--- NOTE | 2019-04-20 06:56 | NUR ---
Problems reprioritized. Patient report given, questions answered & plan of care reviewed with Marlene PARSONS.
[2019-04-20] MEDS: morphine/PF injection 8 MG in normal saline 100ml IV soln 92 ML EPI SCH (07:02)
[2019-04-20] MEDS: K and/or MAG REPLACEMENT MC SCH (08:00)
--- NOTE | 2019-04-20 08:00 | NUR ---
Patient refusing to have BP cuff on for hourly vitals. Will continue to monitor.
--- NOTE | 2019-04-20 08:23 | NUR ---
I have reviewed and agree with all medications administered and interventions performed by [facility] Student Michael Rojas Addendum: 04/20/19 at 0824 by Radha Nazario RT Amended: Links added.
[2019-04-20] MEDS: sennosides/docusate sodium tablet PO SCH ×2 (08:41→19:49)
[2019-04-20] MEDS: docusate sod 100mg capsule PO SCH ×2 (08:41→19:49)
[2019-04-20] MEDS: gabapentin 300mg capsule PO SCH (08:41)
[2019-04-20] MEDS: lactobacillus rhamnosus 10,000 MMU CELLS/CAPSULE PO SCH ×2 (08:41→19:49)
[2019-04-20] MEDS: levoFLOXACIN-Levaquin 750MG/D5 150 ML IV SCH (09:22)
--- NOTE | 2019-04-20 11:15 | NUR ---
Patient found to have leaking fluids down back from epidural site. Call made to Dr. Bartholomew, awaiting new orders.
--- NOTE | 2019-04-20 11:45 | NUR ---
Dr. Bartholomew at bedside, epidural removed from back.
[2019-04-20] MEDS: magnesium hydroxide 30ml (MOM) UD suspension PO PRN (17:06)
--- NOTE | 2019-04-20 18:30 | NUR ---
Patient in room ICU 2038. I have received report from hs rn and had the opportunity to ask questions and assume patient care.
--- NOTE | 2019-04-20 18:36 | NUR ---
Problems reprioritized. Patient report given, questions answered & plan of care reviewed with JAQUELINE Glover.
--- NOTE | 2019-04-20 19:08 | NUR ---
Pt refusing to have his blood pressure checked stating he "hasn't slept since been in here". And "it goes off every hour". Will attempt to recheck his blood pressure later.
--- NOTE | 2019-04-20 20:00 | NUR ---
Pt refusing to have bp checked
[2019-04-20] MEDS: piperacillin/tazo 3.375gm/50ml 50 ML IV SCH (20:40)
--- NOTE | 2019-04-20 20:48 | NUR ---
Pt yelling out "cock sucker" and "I need to shit" behind the curtain. Charge nurse in to see pt.
--- NOTE | 2019-04-20 21:14 | NUR ---
Pt refused blood glucose test. Previous blood glucose in normal range. Will continue to monitor.
--- NOTE | 2019-04-20 21:42 | NUR ---
Pt had large bowel movement.
--- NOTE | 2019-04-20 22:18 | NUR ---
Pt refusing to have vital signs taken.
[2019-04-21] MEDS: piperacillin/tazo 3.375gm/50ml 50 ML IV SCH ×3 (00:25→16:05)
[2019-04-21] MEDS: ipratropium/albuterol 3ml nebule NEB SCH ×7 (00:26→23:00)
--- NOTE | 2019-04-21 00:29 | NUR ---
Pt refused vital signs.
[2019-04-21] MEDS: normal saline 1000ml 1,000 ML IV SCH (00:53)
--- NOTE | 2019-04-21 01:13 | NUR ---
Pt refusing care and vital signs.
[2019-04-21] MEDS: ketorolac trometh. 30mg/ml inj. IV SCH ×4 (02:04→20:24)
--- NOTE | 2019-04-21 04:00 | NUR ---
Pt refusing to have vital signs taken.
[2019-04-21 06:23] LABS: BASOPHILS % (AUTO) 0 % (0-1); EOSINOPHILS % (AUTO) 0.1 % (0-6); HEMATOCRIT 36.5 % (42.0-52.0); LYMPHOCYTES # (AUTO) 2.7 X10'3 (1.1-4.8); LYMPHOCYTES % (AUTO) 14.3 % (21-51); MEAN CORPUSCULAR HEMOGLOBIN 31.4 PG (27.0-31.0); MEAN CORPUSCULAR VOLUME 95.1 FL (78-98); MEAN PLATELET VOLUME 9.4 FL (7.4-10.4); MONOCYTES # (AUTO) 1.8 X10'3 (0-0.9); MONOCYTES % (AUTO) 9.7 % (2-12); NEUTROPHILS # (AUTO) 14.5 X10'3 (1.8-7.7); NEUTROPHILS % (AUTO) 75.9 % (42-75); PLATELET COUNT 187 X10'3 (140-440); RED BLOOD COUNT 3.83 X10'6 (4.70-6.10); RED CELL DISTRIBUTION WIDTH 14.4 % (11.5-14.5); WHITE BLOOD COUNT 19.1 X10'3 (4.5-11.0)
--- NOTE | 2019-04-21 06:39 | NUR ---
Patient in room ICU 2038. I have received report from Meredith RN and had the opportunity to ask questions and assume patient care.
[2019-04-21 06:41] LABS: ALANINE AMINOTRANSFERASE 104 U/L (12-78); ALBUMIN 2.2 G/DL (3.4-5.0); ALBUMIN/GLOBULIN RATIO 0.6 (1.1-1.5); ANION GAP 2 (8-16); ASPARTATE AMINO TRANSFERASE 51 U/L (10-37); BILIRUBIN,TOTAL 0.4 MG/DL (0.1-1.0); BLOOD UREA NITROGEN 23 MG/DL (7-18); BUN/CREATININE RATIO 32.9 (5.4-32.0); CALCIUM 7.6 MG/DL (8.5-10.1); CHLORIDE 100 MMOL/L (99-107); GLUCOSE 99 MG/DL (70-104); MAGNESIUM 1.7 MG/DL (1.5-2.4); PHOSPHORUS 2.3 MG/DL (2.3-4.5); POTASSIUM 4.6 MMOL/L (3.5-5.1); SODIUM 136 MMOL/L (135-145); TOTAL CARBON DIOXIDE 33.6 MMOL/L (24-32); TOTAL PROTEIN 5.9 G/DL (6.4-8.2); eGFR > 90 ML/MIN
[2019-04-21 06:49] LABS: ALKALINE PHOSPHATASE 95 IU/L (46-116)
[2019-04-21] MEDS: K and/or MAG REPLACEMENT MC SCH (08:00)
[2019-04-21] MEDS: sennosides/docusate sodium tablet PO SCH ×2 (08:00→20:23)
[2019-04-21 08:48] VITALS: BP 116/62
--- NOTE | 2019-04-21 09:00 | NUR ---
pt refused BG check. will continue to monitor Addendum: 04/22/19 at 0420 by Keshawn Lynch RN incorrect time. 04/21/19 @ 2100
[2019-04-21] MEDS: methylPREDNISolone sod succ 125mg/2ml vial IV SCH ×2 (09:34→20:24)
[2019-04-21] MEDS: docusate sod 100mg capsule PO SCH ×2 (09:35→20:23)
[2019-04-21] MEDS: lactobacillus rhamnosus 10,000 MMU CELLS/CAPSULE PO SCH ×2 (09:35→20:23)
--- NOTE | 2019-04-21 10:46 | NUR ---
Pt does not want to wear BP cuff or have his BP taken often
[2019-04-21] MEDS: ondansetron/PF 4mg/2ml inj IV PRN (11:52)
[2019-04-21] MEDS: magnesium hydroxide 30ml (MOM) UD suspension PO PRN (12:10)
[2019-04-21 12:23] VITALS: BP 109/72
[2019-04-21 14:37] VITALS: BP 119/75
--- NOTE | 2019-04-21 15:16 | NUR ---
Problems reprioritized. Patient report given, questions answered & plan of care reviewed with DAT PARSONS.
--- NOTE | 2019-04-21 16:20 | NUR ---
Pt transferred to surgical with all belongings meds and CT kit with clamps at [address] intake.
[2019-04-21 18:00] VITALS: BP 106/65
--- NOTE | 2019-04-21 18:37 | NUR ---
Problems reprioritized. Patient report given, questions answered & plan of care reviewed with Derrick PARSONS.
[2019-04-22] VITALS: BP 124/77
[2019-04-22] MEDS: piperacillin/tazo 3.375gm/50ml 50 ML IV SCH ×4 (00:22→23:38)
[2019-04-22] MEDS: temazepam 15mg capsule PO PRN ×2 (00:22→18:48)
[2019-04-22] MEDS: ketorolac trometh. 30mg/ml inj. IV SCH ×5 (02:00→18:47)
[2019-04-22] MEDS: ipratropium/albuterol 3ml nebule NEB SCH ×5 (03:00→19:27)
[2019-04-22 05:32] LABS: ALANINE AMINOTRANSFERASE 108 U/L (12-78); ALBUMIN 2.3 G/DL (3.4-5.0); ALBUMIN/GLOBULIN RATIO 0.6 (1.1-1.5); ALKALINE PHOSPHATASE 109 IU/L (46-116); ANION GAP 0 (8-16); ASPARTATE AMINO TRANSFERASE 47 U/L (10-37); BILIRUBIN,TOTAL 0.6 MG/DL (0.1-1.0); BLOOD UREA NITROGEN 17 MG/DL (7-18); BUN/CREATININE RATIO 23.6 (5.4-32.0); CALCIUM 8.4 MG/DL (8.5-10.1); CHLORIDE 102 MMOL/L (99-107); CREATININE 0.72 MG/DL (0.60-1.10); GLUCOSE 127 MG/DL (70-104); PHOSPHORUS 3.1 MG/DL (2.3-4.5); POTASSIUM 4.8 MMOL/L (3.5-5.1); SODIUM 137 MMOL/L (135-145); TOTAL CARBON DIOXIDE 35.2 MMOL/L (24-32); TOTAL PROTEIN 6.1 G/DL (6.4-8.2); eGFR > 90 ML/MIN
[2019-04-22 05:57] LABS: BASOPHILS % (AUTO) 0 % (0-1); EOSINOPHILS # (AUTO) 0.1 X10'3 (0-0.9); EOSINOPHILS % (AUTO) 0.5 % (0-6); HEMATOCRIT 37.3 % (42.0-52.0); HEMOGLOBIN 12.3 g/dl (14.0-17.9); LYMPHOCYTES # (AUTO) 2.2 X10'3 (1.1-4.8); LYMPHOCYTES % (AUTO) 12.1 % (21-51); MEAN CORPUSCULAR HEMOGLOBIN 31.5 PG (27.0-31.0); MEAN CORPUSCULAR VOLUME 95.2 FL (78-98); MEAN PLATELET VOLUME 8.6 FL (7.4-10.4); MONOCYTES # (AUTO) 1.6 X10'3 (0-0.9); MONOCYTES % (AUTO) 8.8 % (2-12); NEUTROPHILS # (AUTO) 13.9 X10'3 (1.8-7.7); NEUTROPHILS % (AUTO) 78.6 % (42-75); PLATELET COUNT 222 X10'3 (140-440); RED BLOOD COUNT 3.92 X10'6 (4.70-6.10); RED CELL DISTRIBUTION WIDTH 14.7 % (11.5-14.5); WHITE BLOOD COUNT 17.8 X10'3 (4.5-11.0)
--- NOTE | 2019-04-22 06:18 | NUR ---
Patient in room MELANI 356. I have received report from Derrick PARSONS and had the opportunity to ask questions and assume patient care.
--- NOTE | 2019-04-22 06:23 | NUR ---
report given to JAQUELINE Bang
[2019-04-22] MEDS: docusate sod 100mg capsule PO SCH ×2 (07:18→18:47)
[2019-04-22] MEDS: lactobacillus rhamnosus 10,000 MMU CELLS/CAPSULE PO SCH ×2 (07:18→18:48)
[2019-04-22] MEDS: methylPREDNISolone sod succ 125mg/2ml vial IV SCH ×2 (07:18→18:47)
[2019-04-22] MEDS: sennosides/docusate sodium tablet PO SCH ×2 (07:19→18:48)
--- NOTE | 2019-04-22 07:25 | NUR ---
IV found to be leaking.
[2019-04-22] MEDS: K and/or MAG REPLACEMENT MC SCH (08:00)
[2019-04-22 12:00] VITALS: BP 117/75
--- NOTE | 2019-04-22 13:26 | NUR ---
Patient refusing to wear tele.
--- NOTE | 2019-04-22 13:28 | NUR ---
PAGER ID: [phone] MESSAGE: [phone] Tarik Clements. patient refusing to wear tele, can we dc it? Beti [phone]
--- NOTE | 2019-04-22 15:55 | NUR ---
PAGER ID: [phone] MESSAGE: Tarik Ramírez. Can patient have a nicotine patch, dc his accu checks from ICU, A1C 5.8? Beti [phone]
[2019-04-22] MEDS: nicotine 21mg patch - 24 hr TD SCH (17:50)
[2019-04-22 18:00] VITALS: BP 125/68
[2019-04-22] MEDS: HYDROcodone/acetaminophen 10/325mg tab PO PRN (18:48)
--- NOTE | 2019-04-22 22:11 | NUR ---
Patient in room MELANI 356. I have received report from JAQUELINE Bang and had the opportunity to ask questions and assume patient care. Addendum: 04/22/19 at 2211 by Laura Trevizo RN Amended: Links added.
[2019-04-22 23:59] VITALS: BP 122/82
[2019-04-23] MEDS: ipratropium/albuterol 3ml nebule NEB SCH ×7 (00:05→23:45)
[2019-04-23] MEDS: ketorolac trometh. 30mg/ml inj. IV SCH ×2 (01:23→08:20)
--- NOTE | 2019-04-23 06:21 | NUR ---
Problems reprioritized. Patient report given, questions answered & plan of care reviewed with JAQUELINE Bang. Addendum: 04/23/19 at 0621 by Laura Trevizo RN Amended: Links added.
[2019-04-23 07:00] VITALS: BP 129/88
[2019-04-23 07:06] LABS: HEMATOCRIT 38.8 % (42.0-52.0); LYMPHOCYTES # (AUTO) 3.1 X10'3 (1.1-4.8); MONOCYTES # (AUTO) 1.2 X10'3 (0-0.9)
[2019-04-23 07:07] LABS: BASOPHILS # (AUTO) 0.2 X10'3 (0-0.2); BASOPHILS % (AUTO) 0.8 % (0-1); EOSINOPHILS # (AUTO) 0.6 X10'3 (0-0.9); EOSINOPHILS % (AUTO) 2.9 % (0-6); HEMOGLOBIN 12.8 g/dl (14.0-17.9); LYMPHOCYTES % (AUTO) 14.2 % (21-51); MEAN CORPUSCULAR HEMOGLOBIN 31.2 PG (27.0-31.0); MEAN CORPUSCULAR HGB CONC 33.1 g/dL (33.0-36.5); MEAN CORPUSCULAR VOLUME 94.3 FL (78-98); MEAN PLATELET VOLUME 8.1 FL (7.4-10.4); MONOCYTES % (AUTO) 5.8 % (2-12); NEUTROPHILS # (AUTO) 16.4 X10'3 (1.8-7.7); NEUTROPHILS % (AUTO) 76.3 % (42-75); PLATELET COUNT 253 X10'3 (140-440); RED BLOOD COUNT 4.11 X10'6 (4.70-6.10); RED CELL DISTRIBUTION WIDTH 14.6 % (11.5-14.5); WHITE BLOOD COUNT 21.4 X10'3 (4.5-11.0)
[2019-04-23 07:26] LABS: ALANINE AMINOTRANSFERASE 122 U/L (12-78); ALBUMIN 2.4 G/DL (3.4-5.0); ALBUMIN/GLOBULIN RATIO 0.6 (1.1-1.5); ALKALINE PHOSPHATASE 140 IU/L (46-116); ANION GAP 5 (8-16); ASPARTATE AMINO TRANSFERASE 57 U/L (10-37); BILIRUBIN,TOTAL 0.4 MG/DL (0.1-1.0); BLOOD UREA NITROGEN 16 MG/DL (7-18); BUN/CREATININE RATIO 21.3 (5.4-32.0); CALCIUM 8.1 MG/DL (8.5-10.1); CHLORIDE 100 MMOL/L (99-107); CREATININE 0.75 MG/DL (0.60-1.10); GLUCOSE 156 MG/DL (70-104); MAGNESIUM 1.7 MG/DL (1.5-2.4); PHOSPHORUS 3.6 MG/DL (2.3-4.5); POTASSIUM 4.4 MMOL/L (3.5-5.1); SODIUM 135 MMOL/L (135-145); TOTAL CARBON DIOXIDE 30.4 MMOL/L (24-32); TOTAL PROTEIN 6.4 G/DL (6.4-8.2); eGFR > 90 ML/MIN
[2019-04-23] MEDS: K and/or MAG REPLACEMENT MC SCH (08:00)
[2019-04-23] MEDS: nicotine 21mg patch - 24 hr TD SCH (08:00)
[2019-04-23] MEDS: sennosides/docusate sodium tablet PO SCH ×2 (08:19→20:52)
[2019-04-23] MEDS: docusate sod 100mg capsule PO SCH ×2 (08:19→20:53)
[2019-04-23] MEDS: piperacillin/tazo 3.375gm/50ml 50 ML IV SCH ×3 (08:19→23:22)
[2019-04-23] MEDS: lactobacillus rhamnosus 10,000 MMU CELLS/CAPSULE PO SCH ×2 (08:19→20:53)
[2019-04-23] MEDS: methylPREDNISolone sod succ 125mg/2ml vial IV SCH (08:20)
--- NOTE | 2019-04-23 11:37 | NUR ---
PAGER ID: [phone] MESSAGE: [phone] Tyree, I need Ativan for this patient please. Beti 0936
[2019-04-23] MEDS: LORazepam 1 MG tablet PO PRN ×3 (11:47→20:52)
[2019-04-23] MEDS: HYDROcodone/acetaminophen 10/325mg tab PO PRN (20:21)
[2019-04-23] MEDS: temazepam 15mg capsule PO PRN (20:52)
--- NOTE | 2019-04-23 21:19 | NUR ---
Patient in room MEL[facility] 356. I have received report from JAQUELINE Bang and had the opportunity to ask questions and assume patient care. Addendum: 04/23/19 at 2124 by Laura Trevizo RN Amended: Links added.
[2019-04-24 00:41] VITALS: BP 110/74
[2019-04-24] MEDS: HYDROcodone/acetaminophen 10/325mg tab PO PRN ×4 (02:53→20:02)
[2019-04-24] MEDS: ipratropium/albuterol 3ml nebule NEB SCH ×6 (03:00→23:00)
[2019-04-24 05:38] LABS: BASOPHILS # (AUTO) 0.1 X10'3 (0-0.2); BASOPHILS % (AUTO) 0.4 % (0-1); EOSINOPHILS # (AUTO) 1.1 X10'3 (0-0.9); EOSINOPHILS % (AUTO) 5.1 % (0-6); HEMATOCRIT 40.5 % (42.0-52.0); HEMOGLOBIN 13.3 g/dl (14.0-17.9); LYMPHOCYTES # (AUTO) 3.5 X10'3 (1.1-4.8); MEAN CORPUSCULAR HEMOGLOBIN 31.3 PG (27.0-31.0); MEAN CORPUSCULAR HGB CONC 32.9 g/dL (33.0-36.5); MEAN CORPUSCULAR VOLUME 95.1 FL (78-98); MEAN PLATELET VOLUME 8.6 FL (7.4-10.4); MONOCYTES # (AUTO) 1.8 X10'3 (0-0.9); MONOCYTES % (AUTO) 8.3 % (2-12); NEUTROPHILS # (AUTO) 15.3 X10'3 (1.8-7.7); NEUTROPHILS % (AUTO) 70.2 % (42-75); PLATELET COUNT 250 X10'3 (140-440); RED BLOOD COUNT 4.26 X10'6 (4.70-6.10); RED CELL DISTRIBUTION WIDTH 14.5 % (11.5-14.5); WHITE BLOOD COUNT 21.9 X10'3 (4.5-11.0)
--- NOTE | 2019-04-24 06:04 | NUR ---
Problems reprioritized. Patient report given, questions answered & plan of care reviewed with JAQUELINE Bang. Addendum: 04/24/19 at 0604 by Laura Trevizo RN Amended: Links added.
[2019-04-24 06:07] LABS: ALANINE AMINOTRANSFERASE 121 U/L (12-78); ALBUMIN 2.4 G/DL (3.4-5.0); ALBUMIN/GLOBULIN RATIO 0.6 (1.1-1.5); ALKALINE PHOSPHATASE 114 IU/L (46-116); ANION GAP 8 (8-16); BILIRUBIN,TOTAL 0.7 MG/DL (0.1-1.0); BLOOD UREA NITROGEN 21 MG/DL (7-18); BUN/CREATININE RATIO 30.9 (5.4-32.0); CALCIUM 8.2 MG/DL (8.5-10.1); CHLORIDE 98 MMOL/L (99-107); CREATININE 0.68 MG/DL (0.60-1.10); GLUCOSE 81 MG/DL (70-104); MAGNESIUM 1.8 MG/DL (1.5-2.4); SODIUM 133 MMOL/L (135-145); TOTAL CARBON DIOXIDE 27.1 MMOL/L (24-32); TOTAL PROTEIN 6.7 G/DL (6.4-8.2); eGFR > 90 ML/MIN
[2019-04-24 06:09] LABS: ASPARTATE AMINO TRANSFERASE 71 U/L (10-37); PHOSPHORUS 4.7 MG/DL (2.3-4.5); POTASSIUM 5.1 MMOL/L (3.5-5.1)
[2019-04-24] MEDS: nicotine 21mg patch - 24 hr TD SCH (07:40)
[2019-04-24 07:41] VITALS: BP 111/79
[2019-04-24] MEDS: K and/or MAG REPLACEMENT MC SCH (08:00)
[2019-04-24] MEDS: magnesium hydroxide 30ml (MOM) UD suspension PO PRN (08:15)
[2019-04-24] MEDS: LORazepam 1 MG tablet PO PRN ×3 (08:15→20:02)
[2019-04-24] MEDS: piperacillin/tazo 3.375gm/50ml 50 ML IV SCH ×3 (08:15→23:32)
[2019-04-24] MEDS: sennosides/docusate sodium tablet PO SCH ×2 (08:15→20:02)
[2019-04-24] MEDS: docusate sod 100mg capsule PO SCH ×2 (08:15→20:02)
[2019-04-24] MEDS: lactobacillus rhamnosus 10,000 MMU CELLS/CAPSULE PO SCH ×2 (08:21→20:02)
--- NOTE | 2019-04-24 08:48 | NUR ---
Call from radiologist, Dr. Haynes, informing nursing that per CXR pt has a "small pneumo on the right". Pt is on 20cm sx at this time, is currently at rest w/o distress. Primary RN, Beti, notified.
--- NOTE | 2019-04-24 09:03 | NUR ---
Notified by Charge Nurse Rohini that Radiologist Dr. Haynes called to report patient "still has a small pneumo on the right side." Patient is with chest tube on suction 20cm. Dr. Waldron is completely aware that his patient that he place a chest tube has a pneumo, I will speak to Dr. Waldron upon rounding. Patient is resting without complaints at this time. No SOB.
--- NOTE | 2019-04-24 09:40 | NUR ---
MOM given Addendum: 04/24/19 at 0945 by Beti العلي RN Amended: Links added.
--- NOTE | 2019-04-24 10:26 | NUR ---
Reassessment: Patient's diet has been advanced from full liquid to regular and pt documented with 75-100% PO intake meeting nutrient needs receiving double protein TID and double eggs QD at breakfast as well as Malagasy yogurt BIDBD and cottage cheese QD with lunch. Pt with chest tube s/p bullectomy. [facility] 04/21 receiving routine Colace and Senna-S. Pt just received first dose of PRM MoM today since 04/21. Will continue to follow. Rec: 1. continue regular diet 2. double eggs QD at breakfast; double meat TID; Malagasy yogurt BIDBD; cottage cheese QD at lunch 3. routine bowel care 4. wt per rx Addendum: 04/24/19 at [address] Amended: Links added.
[2019-04-24 11:19] VITALS: BP 92/60
--- NOTE | 2019-04-24 12:49 | NUR ---
Patient on water seal currently as ordered by Dr. Waldron during rounding.
--- NOTE | 2019-04-24 18:04 | NUR ---
Problems reprioritized. Patient report given, questions answered & plan of care reviewed with Laura PARSONS.
[2019-04-24 20:00] VITALS: BP 93/65
[2019-04-24] MEDS: temazepam 15mg capsule PO PRN (20:02)
[2019-04-24 23:53] VITALS: BP 114/81
[2019-04-25] MEDS: ipratropium/albuterol 3ml nebule NEB SCH ×3 (03:00→11:00)
[2019-04-25 05:39] LABS: BASOPHILS # (AUTO) 0.1 X10'3 (0-0.2); BASOPHILS % (AUTO) 0.3 % (0-1); EOSINOPHILS # (AUTO) 0.7 X10'3 (0-0.9); EOSINOPHILS % (AUTO) 3.9 % (0-6); HEMATOCRIT 41.9 % (42.0-52.0); HEMOGLOBIN 13.8 g/dl (14.0-17.9); LYMPHOCYTES # (AUTO) 2.7 X10'3 (1.1-4.8); LYMPHOCYTES % (AUTO) 14.2 % (21-51); MEAN CORPUSCULAR HEMOGLOBIN 31.5 PG (27.0-31.0); MEAN CORPUSCULAR VOLUME 95.4 FL (78-98); MEAN PLATELET VOLUME 8.2 FL (7.4-10.4); MONOCYTES # (AUTO) 1.7 X10'3 (0-0.9); NEUTROPHILS % (AUTO) 72.6 % (42-75); PLATELET COUNT 290 X10'3 (140-440); RED BLOOD COUNT 4.39 X10'6 (4.70-6.10); WHITE BLOOD COUNT 19.3 X10'3 (4.5-11.0)
--- NOTE | 2019-04-25 06:10 | NUR ---
Patient in room MEL[facility] 356. I have received report from JAQUELINE Gauthier and had the opportunity to ask questions and assume patient care. Patient currently resting in bed, bed locked and low, call light in reach, no acute distress, will continue to monitor
--- NOTE | 2019-04-25 06:16 | NUR ---
Problems reprioritized. Patient report given, questions answered & plan of care reviewed with JAQUELINE Brennan. Addendum: 04/25/19 at 0617 by Laura Trevizo RN Amended: Links added.
[2019-04-25 06:24] LABS: ALBUMIN 2.5 G/DL (3.4-5.0); ANION GAP 3 (8-16); BLOOD UREA NITROGEN 24 MG/DL (7-18); BUN/CREATININE RATIO 26.7 (5.4-32.0); CALCIUM 8.4 MG/DL (8.5-10.1); CHLORIDE 98 MMOL/L (99-107); GLUCOSE 84 MG/DL (70-104); PHOSPHORUS 3.8 MG/DL (2.3-4.5); POTASSIUM 4.4 MMOL/L (3.5-5.1); SODIUM 136 MMOL/L (135-145); TOTAL CARBON DIOXIDE 34.9 MMOL/L (24-32); eGFR 88 ML/MIN
[2019-04-25 06:51] LABS: PLATELET ESTIMATE NORMAL; TOTAL CELLS COUNTED 100
[2019-04-25 07:00] VITALS: BP 112/76
[2019-04-25 07:06] LABS: POLYCHROMASIA FEW
[2019-04-25] MEDS: piperacillin/tazo 3.375gm/50ml 50 ML IV SCH ×2 (07:47→08:00)
[2019-04-25] MEDS: lactobacillus rhamnosus 10,000 MMU CELLS/CAPSULE PO SCH (07:47)
[2019-04-25] MEDS: nicotine 21mg patch - 24 hr TD SCH (08:00)
[2019-04-25] MEDS: K and/or MAG REPLACEMENT MC SCH (08:00)
[2019-04-25] MEDS: sennosides/docusate sodium tablet PO SCH (08:00)
[2019-04-25] MEDS: docusate sod 100mg capsule PO SCH (08:00)
[2019-04-25] MEDS: LORazepam 1 MG tablet PO PRN (10:56)
[2019-04-25 11:00] VITALS: BP 95/67
--- NOTE | 2019-04-25 11:50 | NUR ---
PAGER ID: [phone] MESSAGE: JAQUELINE Brennan, ext [phone], [place], patient states he was told he could go home today, getting very agitated about discharge. No orders for care of thoravent
--- NOTE | 2019-04-25 12:15 | NUR ---
Dr. Ngo at bedside, says that patient is cleared to go home from his perspective, can follow up at his office on Tuesday, needs to be taught to drain thoravent and sent home with 60cc syringe to drain it.
--- NOTE | 2019-04-25 12:22 | NUR ---
PAGER ID: [phone] MESSAGE: JAQUELINE Brennan, ext [phone], [phone], Tyree, per Dr. Ngo patient can go home today, patient is very adamant to be discharged valarie
[2019-04-25] MEDS ORDERED: ADV50100 IH (12:40)
[2019-04-25] MEDS ORDERED: ALBU18HF2 IH (12:40)
== END 2019-04-25 13:40 | disposition home health service (06) | DRG 121 ==
LOC: ER 11:24 → ED HOLD 15:10 → PCU 3S 17:30 → ICU 2S 04-18 13:57 → SUR 3N 04-21 15:55
PROVIDERS: ADMIT Family Medicine; ATTEND Hospitalist
PROC: B32T1ZZ Computerized Tomography (CT Scan) of Left Pulmonary Artery using Low Osmolar Contrast (ICD-10-PCS; 2019-04-13)
PROC: B3201ZZ Computerized Tomography (CT Scan) of Thoracic Aorta using Low Osmolar Contrast (ICD-10-PCS; 2019-04-13)
PROC: B32S1ZZ Computerized Tomography (CT Scan) of Right Pulmonary Artery using Low Osmolar Contrast (ICD-10-PCS; 2019-04-13)
PROC: 0W9930Z Drainage of Right Pleural Cavity with Drainage Device, Percutaneous Approach (ICD-10-PCS; 2019-04-13)
PROC: 0B5N0ZZ Destruction of Right Pleura, Open Approach (ICD-10-PCS; 2019-04-18)
PROC: 0BND0ZZ Release Right Middle Lung Lobe, Open Approach (ICD-10-PCS; 2019-04-18)
PROC: 0BNC0ZZ Release Right Upper Lung Lobe, Open Approach (ICD-10-PCS; 2019-04-18)
PROC: 0W9930Z Drainage of Right Pleural Cavity with Drainage Device, Percutaneous Approach (ICD-10-PCS; 2019-04-18)
PROC: 0BBC0ZZ Excision of Right Upper Lung Lobe, Open Approach (ICD-10-PCS; principal; 2019-04-18 11:09)
DX: J93.83 Other pneumothorax (principal); J96.00 Acute respiratory failure, unspecified whether with hypoxia or hypercapnia; E87.2 Acidosis; B19.20 Unspecified viral hepatitis C without hepatic coma; J43.9 Emphysema, unspecified; F15.10 Other stimulant abuse, uncomplicated; F12.10 Cannabis abuse, uncomplicated; F17.200 Nicotine dependence, unspecified, uncomplicated; F41.9 Anxiety disorder, unspecified; J93.82 Other air leak; K66.0 Peritoneal adhesions (postprocedural) (postinfection); Z91.19 Patient's noncompliance with other medical treatment and regimen; Z71.6 Tobacco abuse counseling; Z56.0 Unemployment, unspecified
CPT/HCPCS: 32551; 36415; 36600; 71045; 71260; 80048; 80053; 80061; 80305; 81003; 82803; 82948; 83036; 83605; 83735; 83880; 84100; 84145; 84484; 85018; 85025; 85027; 85610; 85730; 86703; 86705; 86706; 86709; 86803; 86885; 86900; 86901; 87040; 87081; 87340; 93306; 94640; 94660; 94667; 94668; 94760; 96374; 96375; 97116; 97161; 97164; 97530; 99291; A4215; A4618; A6258; A6449; A7000; A7048; C1758; C9250; C9399; G0378; J0360; J0690; J1100; J1170; J1644; J1885; J1956; J2001; J2060; J2250; J2270; J2310; J2405; J2543; J2704; J2710; J2930; J3010; J3480; J3490; J7030; J7040; J7050; J7060; J7120; Q9967

== ENCOUNTER 2019-11-27 09:00 | Emergency (ER) | payer MEDICAID ==
[~2019-11-27] VITALS: Ht 182.9 cm; Wt 72.7 kg
[~2019-11-27 09:00] MED LIST changes: +ALBU18HF2 IH; -MOME17SP BOTHNARES; -rocuronium 10mg/ml inj IV ONE
[2019-11-27 09:35] LABS: BASOPHILS # (AUTO) 0.1 X10'3 (0-0.2); BASOPHILS % (AUTO) 0.8 % (0-1); EOSINOPHILS # (AUTO) 0.1 X10'3 (0-0.9); HEMATOCRIT 45.8 % (42.0-52.0); HEMOGLOBIN 15.1 g/dl (14.0-17.9); LYMPHOCYTES # (AUTO) 2.1 X10'3 (1.1-4.8); LYMPHOCYTES % (AUTO) 33.5 % (21-51); MEAN CORPUSCULAR HEMOGLOBIN 29.9 PG (27.0-31.0); MEAN CORPUSCULAR VOLUME 90.6 FL (78-98); MEAN PLATELET VOLUME 8.7 FL (7.4-10.4); MONOCYTES # (AUTO) 0.6 X10'3 (0-0.9); MONOCYTES % (AUTO) 9.4 % (2-12); NEUTROPHILS # (AUTO) 3.4 X10'3 (1.8-7.7); NEUTROPHILS % (AUTO) 55.3 % (42-75); PLATELET COUNT 220 X10'3 (140-440); RED BLOOD COUNT 5.06 X10'6 (4.70-6.10); RED CELL DISTRIBUTION WIDTH 14.4 % (11.5-14.5); WHITE BLOOD COUNT 6.2 X10'3 (4.5-11.0)
[2019-11-27 09:47] LABS: ALANINE AMINOTRANSFERASE 198 U/L (12-78); ALBUMIN 3.2 G/DL (3.4-5.0); ALBUMIN/GLOBULIN RATIO 0.8 (1.1-1.5); ALKALINE PHOSPHATASE 159 IU/L (46-116); ANION GAP 7 (8-16); ASPARTATE AMINO TRANSFERASE 111 U/L (10-37); BILIRUBIN,TOTAL 0.4 MG/DL (0.1-1.0); BLOOD UREA NITROGEN 11 MG/DL (7-18); BUN/CREATININE RATIO 11.2 (5.4-32.0); CALCIUM 8.5 MG/DL (8.5-10.1); CHLORIDE 105 MMOL/L (99-107); CREATININE 0.98 MG/DL (0.60-1.10); GLUCOSE 107 MG/DL (70-104); SODIUM 142 MMOL/L (135-145); TOTAL CARBON DIOXIDE 29.7 MMOL/L (24-32); TOTAL PROTEIN 7.2 G/DL (6.4-8.2); eGFR 79 ML/MIN
[2019-11-27] MEDS ORDERED: FLUT1DIS20 INH (10:03)
[2019-11-27] MEDS ORDERED: ALBU8HFA PO (10:03)
[2019-11-27 10:46] VITALS: BP 104/60
== END 2019-11-27 10:48 | disposition home or self-care (01) ==
LOC: ER 09:00
DX: J44.1 Chronic obstructive pulmonary disease with (acute) exacerbation (principal); Z79.899 Other long term (current) drug therapy
CPT/HCPCS: 36415; 71045; 80053; 85025; 99284

== ENCOUNTER 2020-09-22 04:03 | Emergency (ER) | payer MEDICAID ==
[~2020-09-22] VITALS: Ht 182.9 cm; Wt 70.5 kg
[~2020-09-22 04:03] MED LIST changes: +FLUT1DIS20 INH
[2020-09-22 04:06] VITALS: BP 118/88
[2020-09-22] MEDS ORDERED: LIDOcaine 2% 10ml TOPICAL JELLY (Urojet) TP ONE (04:10)
--- NOTE | 2020-09-22 05:00 | NUR ---
Pt given oral fluids and urinal to provide urine sample.
[2020-09-22 05:21] LABS: CLARITY,URINE CLEAR (Clear); COLOR,URINE YELLOW (Yellow); GLUCOSE, URINE NEGATIVE (Neg); KETONES,URINE NEGATIVE (Neg); LEUKOCYTE ESTERASE ,URINE NEGATIVE (Neg); NITRITES, URINE NEGATIVE (Neg); OCCULT BLOOD,URINE NEGATIVE (Neg); PROTEIN,URINE NEGATIVE (Neg)
[2020-09-22 05:27] LABS: UA COLLECTION TYPE URINAL
[2020-09-22] MEDS ORDERED: azithromycin 250mg tablet PO ONE (05:40)
[2020-09-22] MEDS ORDERED: CefTRIAXone 1000mg IM Kit (w/lidocaine diluent) IM ONE (05:40)
== END 2020-09-22 06:13 | disposition home or self-care (01) ==
LOC: ER 04:04
DX: R39.15 Urgency of urination (principal); J44.9 Chronic obstructive pulmonary disease, unspecified; F17.200 Nicotine dependence, unspecified, uncomplicated
CPT/HCPCS: 36415; 81003; 87491; 87591; 96372; 99284; J0696

== ENCOUNTER 2022-10-17 14:41 | Emergency (ER) | payer MEDICAID ==
[~2022-10-17] VITALS: Ht 182.9 cm; Wt 70.5 kg
[2022-10-17 16:06] VITALS: BP 141/96
[2022-10-17] MEDS ORDERED: morphine 4 MG/ML inj SYRINge IV ONE (17:05)
[2022-10-17] MEDS ORDERED: normal saline 1000ML IV soln IV ONE (17:05)
[2022-10-17] MEDS ORDERED: ondansetron/PF 4mg/2ml inj IV ONE (17:05)
[2022-10-17 17:27] LABS: BASOPHILS # (AUTO) 0.1 X10'3 (0-0.2); EOSINOPHILS % (AUTO) 0.3 % (0-6); HEMATOCRIT 51.2 % (42.0-52.0); HEMOGLOBIN 16.8 g/dl (14.0-17.9); LYMPHOCYTES # (AUTO) 1.7 X10'3 (1.1-4.8); LYMPHOCYTES % (AUTO) 13.4 % (21-51); MEAN CORPUSCULAR HEMOGLOBIN 30.1 PG (27.0-31.0); MEAN CORPUSCULAR HGB CONC 32.9 g/dL (33.0-36.5); MEAN CORPUSCULAR VOLUME 91.6 FL (78-98); MEAN PLATELET VOLUME 9.1 FL (7.4-10.4); MONOCYTES # (AUTO) 0.9 X10'3 (0-0.9); MONOCYTES % (AUTO) 7.3 % (2-12); NEUTROPHILS # (AUTO) 9.6 X10'3 (1.8-7.7); PLATELET COUNT 222 X10'3 (140-440); RED BLOOD COUNT 5.59 X10'6 (4.70-6.10); WHITE BLOOD COUNT 12.4 X10'3 (4.5-11.0)
--- NOTE | 2022-10-17 17:38 | NUR ---
F/C started w/ 900cc drained and sample sent to lab.
[2022-10-17 17:46] LABS: ALANINE AMINOTRANSFERASE 108 U/L (12-78); ALBUMIN 3.6 G/DL (3.4-5.0); ALBUMIN/GLOBULIN RATIO 0.8 (1.1-1.5); ALKALINE PHOSPHATASE 124 IU/L (46-116); ANION GAP 11 (8-16); ASPARTATE AMINO TRANSFERASE 65 U/L (10-37); BILIRUBIN,TOTAL 0.9 MG/DL (0.1-1.0); BLOOD UREA NITROGEN 20 MG/DL (7-18); BUN/CREATININE RATIO 24.7 (10.0-20.0); CALCIUM 9.6 MG/DL (8.5-10.1); CHLORIDE 98 MMOL/L (99-107); CREATININE 0.81 MG/DL (0.60-1.10); GLUCOSE 117 MG/DL (70-104); MAGNESIUM 2.2 MG/DL (1.5-2.4); POTASSIUM 4.7 MMOL/L (3.5-5.1); SODIUM 136 MMOL/L (135-145); TOTAL PROTEIN 8.1 G/DL (6.4-8.2); eGFR > 90 ML/MIN
[2022-10-17] MEDS ORDERED: fentaNYL/PF 50MCG/1 ML 2ML syringe IV ONE ×2 (17:50→20:10)
[2022-10-17] MEDS ORDERED: lactulose 20gm/30ml cup PO ONE (18:30)
[2022-10-17] MEDS ORDERED: magnesium hydroxide 30ml (MOM) UD suspension PO ONE ×2 (18:30→19:05)
[2022-10-17] MEDS ORDERED: OXYC-134 PO ×2 (20:31)
--- NOTE | 2022-10-17 20:33 | NUR ---
RN ADMIN IV PAIN MED MD AT BEDSIDE FOR HERNIA REDUCTION POST REDUCTION PT STATES HE FEELS MUCH BETTER
--- NOTE | 2022-10-17 20:46 | NUR ---
IV DC'D PT BEING DISCHARGED DRESSING APPLIED
== END 2022-10-17 20:49 | disposition home or self-care (01) ==
LOC: ER 14:41
DX: K59.00 Constipation, unspecified (principal); K40.90 Unilateral inguinal hernia, without obstruction or gangrene, not specified as recurrent; E86.0 Dehydration; J44.9 Chronic obstructive pulmonary disease, unspecified; F17.210 Nicotine dependence, cigarettes, uncomplicated; F15.90 Other stimulant use, unspecified, uncomplicated; Z79.899 Other long term (current) drug therapy
CPT/HCPCS: 36415; 71045; 74176; 80053; 83605; 83735; 84145; 85025; 87040; 87077; 87186; 93005; 96374; 96375; 96376; 99285; J2405; J3010; J7030

== ENCOUNTER 2022-10-19 19:29 | Emergency (ER) | payer MEDICAID ==
[~2022-10-19] VITALS: Ht 182.9 cm; Wt 77.4 kg
[~2022-10-19 19:29] MED LIST changes: +OXYC-134 PO
[2022-10-19 19:38] VITALS: BP 116/83
[2022-10-19 20:00] LABS: BASOPHILS % (AUTO) 0.4 % (0-1); EOSINOPHILS % (AUTO) 0.3 % (0-6); HEMATOCRIT 50.1 % (42.0-52.0); HEMOGLOBIN 16.7 g/dl (14.0-17.9); LYMPHOCYTES # (AUTO) 2.1 X10'3 (1.1-4.8); MEAN CORPUSCULAR HEMOGLOBIN 30.6 PG (27.0-31.0); MEAN CORPUSCULAR HGB CONC 33.3 g/dL (33.0-36.5); MONOCYTES # (AUTO) 1.1 X10'3 (0-0.9); MONOCYTES % (AUTO) 12.3 % (2-12); NEUTROPHILS # (AUTO) 5.4 X10'3 (1.8-7.7); PLATELET COUNT 219 X10'3 (140-440); RED BLOOD COUNT 5.45 X10'6 (4.70-6.10); RED CELL DISTRIBUTION WIDTH 13.7 % (11.5-14.5); WHITE BLOOD COUNT 8.5 X10'3 (4.5-11.0)
[2022-10-19 20:19] LABS: ALANINE AMINOTRANSFERASE 105 U/L (12-78); ALBUMIN 3.7 G/DL (3.4-5.0); ALBUMIN/GLOBULIN RATIO 0.8 (1.1-1.5); ALKALINE PHOSPHATASE 124 IU/L (46-116); ANION GAP 12 (8-16); ASPARTATE AMINO TRANSFERASE 72 U/L (10-37); BLOOD UREA NITROGEN 17 MG/DL (7-18); BUN/CREATININE RATIO 17.5 (10.0-20.0); CHLORIDE 96 MMOL/L (99-107); CREATININE 0.97 MG/DL (0.60-1.10); GLUCOSE 122 MG/DL (70-104); LIPASE < 50 U/L (73-393); POTASSIUM 4.5 MMOL/L (3.5-5.1); SODIUM 134 MMOL/L (135-145); TOTAL CARBON DIOXIDE 26.4 MMOL/L (24-32); TOTAL PROTEIN 8.1 G/DL (6.4-8.2); eGFR 79 ML/MIN
== END 2022-10-19 22:45 | disposition left against medical advice (07) ==
LOC: ER 19:30
DX: R10.9 Unspecified abdominal pain (principal); Z53.21 Procedure and treatment not carried out due to patient leaving prior to being seen by health care provider
CPT/HCPCS: 36415; 80053; 83690; 85025; 99281

== ENCOUNTER 2022-10-22 09:17 | Inpatient (IN) | payer MEDICAID ==
[~2022-10-22] VITALS: Ht 185.4 cm; Wt 65.0 kg
[2022-10-22] MEDS ORDERED: normal saline 1000ml 1,000 ML IV ONE (09:40)
[2022-10-22 10:07] LABS: BASOPHILS % (AUTO) 0.8 % (0-1); EOSINOPHILS % (AUTO) 0.3 % (0-6); HEMATOCRIT 46.8 % (42.0-52.0); HEMOGLOBIN 15.5 g/dl (14.0-17.9); LYMPHOCYTES # (AUTO) 1.3 X10'3 (1.1-4.8); LYMPHOCYTES % (AUTO) 21.3 % (21-51); MEAN CORPUSCULAR HEMOGLOBIN 30.5 PG (27.0-31.0); MEAN CORPUSCULAR HGB CONC 33.2 g/dL (33.0-36.5); MEAN CORPUSCULAR VOLUME 91.9 FL (78-98); MEAN PLATELET VOLUME 9.5 FL (7.4-10.4); MONOCYTES % (AUTO) 16.3 % (2-12); NEUTROPHILS # (AUTO) 3.7 X10'3 (1.8-7.7); NEUTROPHILS % (AUTO) 61.3 % (42-75); PLATELET COUNT 207 X10'3 (140-440); RED BLOOD COUNT 5.09 X10'6 (4.70-6.10); RED CELL DISTRIBUTION WIDTH 14.2 % (11.5-14.5)
[2022-10-22 10:12] LABS: ALANINE AMINOTRANSFERASE 117 U/L (12-78); ALBUMIN 3.5 G/DL (3.4-5.0); ALBUMIN/GLOBULIN RATIO 0.9 (1.1-1.5); ALKALINE PHOSPHATASE 109 IU/L (46-116); ANION GAP 9 (8-16); ASPARTATE AMINO TRANSFERASE 80 U/L (10-37); BILIRUBIN,TOTAL 0.9 MG/DL (0.1-1.0); BLOOD UREA NITROGEN 23 MG/DL (7-18); BUN/CREATININE RATIO 24.2 (10.0-20.0); CALCIUM 8.6 MG/DL (8.5-10.1); CHLORIDE 95 MMOL/L (99-107); CREATININE 0.95 MG/DL (0.60-1.10); ETHANOL < 0.010 GM/DL (0.0-0.010); GLUCOSE 113 MG/DL (70-104); LIPASE < 50 U/L (73-393); POTASSIUM 4.2 MMOL/L (3.5-5.1); SODIUM 131 MMOL/L (135-145); TOTAL CARBON DIOXIDE 27.1 MMOL/L (24-32); TOTAL PROTEIN 7.4 G/DL (6.4-8.2); eGFR 81 ML/MIN
[2022-10-22 10:16] LABS: COLOR,URINE AMBER (Yellow); GLUCOSE, URINE NEGATIVE (Neg); KETONES,URINE 40 mg/dl (Neg); LEUKOCYTE ESTERASE ,URINE NEGATIVE (Neg); NITRITES, URINE NEGATIVE (Neg); OCCULT BLOOD,URINE NEGATIVE (Neg); PH,URINE 5.5 (4.8-8.0); PROTEIN,URINE 30 mg/dl (Neg)
[2022-10-22] MEDS ORDERED: ondansetron/PF 4mg/2ml inj IV ONE (10:20)
[2022-10-22] MEDS ORDERED: HYDROmorphone 1 mg/ml syringe IV ONE ×2 (10:20→14:20)
[2022-10-22 10:23] LABS: URINE AMPHETAMINE SCREEN NEGATIVE (Neg); URINE BARBITUATE SCREEN NEGATIVE (Neg); URINE BENZODIAZEPINES SCREEN NEGATIVE (Neg); URINE CANNABINOID SCREEN POSITIVE (Neg); URINE COCAINE SCREEN NEGATIVE (Neg); URINE METHADONE SCREEN NEGATIVE (Neg); URINE OPIATE SCREEN NEGATIVE (Neg); URINE PHENCYCLIDINE SCREEN NEGATIVE (Neg)
[2022-10-22 10:30] LABS: CLARITY,URINE SLIGHTLY CLOUDY (Clear); UA COLLECTION TYPE CLN CATCH MIDSTREAM
[2022-10-22 10:31] LABS: BACTERIA,URINE FEW /HPF (Neg); FINE GRANULAR CAST 0-3 /LPF (NEGATIVE); MUCUS STRANDS MODERATE /LPF (Neg); RBC,URINE NONE SEEN /HPF (0-2); SQUAMOUS EPITHELIAL CELL,UR FEW /LPF (FEW); WBC,URINE 0-4 /HPF (0-4)
--- NOTE | 2022-10-22 11:39 | NUR ---
PT TO CT
--- NOTE | 2022-10-22 11:56 | NUR ---
RETURNS FROM CT
--- NOTE | 2022-10-22 12:41 | NUR ---
SUKUMAR CALLED FOR AN UPDATE. HER PHONE NUMBER IS [phone]. WOULD LIKE US TO KEEP HER INFORMED WITH CHANGES.
[2022-10-22] MEDS ORDERED: acetaminophen 325mg tablet PO PRN ×2 (13:45)
[2022-10-22] MEDS ORDERED: ondansetron/PF 4mg/2ml inj IV PRN (13:45)
[2022-10-22] MEDS ORDERED: magnesium hydroxide 30ml (MOM) UD suspension PO PRN (13:45)
[2022-10-22] MEDS ORDERED: HYDROcodone/acetaminophen 5mg/325mg tablet PO PRN (13:45)
[2022-10-22] MEDS ORDERED: mag hydrox/Alum hydrox/simeth 30ml oral suspension PO PRN (13:45)
[2022-10-22] MEDS ORDERED: metoclopramide 5 mg/ml inj IV PRN (13:45)
[2022-10-22] MEDS ORDERED: morphine 2 MG/ML inj. syringe IV PRN (13:45)
--- NOTE | 2022-10-22 14:16 | NUR ---
16FR [place] PUMP PLACED TO LOW CONTINUOUS SUCTION PER DR HOLGUIN AT THE BEDSIDE.
[2022-10-22] MEDS: dextrose 5%-1/2 normal saline 1,000 ML IV SCH ×2 (14:28→22:59)
--- NOTE | 2022-10-22 14:34 | NUR ---
CALLED ORTHO TO GIVE REPORT. TIA SAID JANUSZ WOULD BE TAKING PT AND SHE WONT BE BACK FROM LUNCH FORANOTHER 20 MINUTES. WILL CALL BACK IN 20 MINUTES.
--- NOTE | 2022-10-22 15:20 | NUR ---
Pt arrived to unit in room 4013B, VSS, alert, oriented and appropriate, MRSA swab obtained, 2 nurse skin check done. Pt oriented to room and call light system, requested that his be called.
[2022-10-22 15:30] VITALS: BP 159/64
--- NOTE | 2022-10-22 15:44 | NUR ---
alyssa called at [phone] to update of admission to the unit and room number, voicemail left with unit call back number.
--- NOTE | 2022-10-22 17:31 | NUR ---
PAGER ID: [phone] MESSAGE: Eyal Clements rm 4013B pt BP 153/108 pulse 97 please advise otis Pate
[2022-10-22 18:00] VITALS: BP 153/108
--- NOTE | 2022-10-22 18:13 | NUR ---
Pt requesting to have NG replaced due to discomfort in the back of his throat, after procedure of removal of previous NG placed in the ED pt was hesitant to replace. MD Rene entered room at this time, instructed myself and charge loader to leave NG out and only replace if N/V or abd discomfort occur. Pt agreeable and thankful. aware of elevated BP, stated to monitor pt and give time for adjustment post discomfort.
--- NOTE | 2022-10-22 18:42 | NUR ---
Problems reprioritized. Patient report given, questions answered & plan of care reviewed with Maryellen PARSONS.
[2022-10-22] MEDS: docusate sod 100mg capsule PO SCH (19:12)
--- NOTE | 2022-10-22 20:00 | NUR ---
Asked pt if NGT could be replaced, Pt refuses at this time.
[2022-10-22] MEDS: HYDROcodone/acetaminophen 10/325mg tab PO PRN (21:08)
[2022-10-22 22:00] VITALS: BP 121/78
--- NOTE | 2022-10-22 23:00 | NUR ---
Morphine 1 mg given for verbalized pain of 6/10. Pt complained the morphine didn't work and [place] given at 2109. Dr. Zelaya was phoned for new pain medication orders. Pt now asleep on left side.
[2022-10-22] MEDS ORDERED: morphine 4 MG/ML inj SYRINge IV PRN (23:15)
[2022-10-22] MEDS ORDERED: HYDROmorphone/PF 0.2 MG/ML SYRINGE IV PRN (23:15)
[2022-10-23] VITALS (13 sets, daily range): BP systolic 112–201; BP diastolic 70–104
[2022-10-23] MEDS: morphine 2 MG/ML inj. syringe IV PRN ×2 (03:52→18:47)
[2022-10-23 06:35] LABS: BASOPHILS % (AUTO) 0.4 % (0-1); EOSINOPHILS % (AUTO) 0.6 % (0-6); HEMATOCRIT 43.4 % (42.0-52.0); HEMOGLOBIN 14.5 g/dl (14.0-17.9); LYMPHOCYTES # (AUTO) 1.6 X10'3 (1.1-4.8); LYMPHOCYTES % (AUTO) 23.2 % (21-51); MEAN CORPUSCULAR HEMOGLOBIN 30.7 PG (27.0-31.0); MEAN CORPUSCULAR HGB CONC 33.4 g/dL (33.0-36.5); MEAN CORPUSCULAR VOLUME 91.9 FL (78-98); MEAN PLATELET VOLUME 9.6 FL (7.4-10.4); MONOCYTES % (AUTO) 13.9 % (2-12); NEUTROPHILS # (AUTO) 4.3 X10'3 (1.8-7.7); NEUTROPHILS % (AUTO) 61.9 % (42-75); PLATELET COUNT 177 X10'3 (140-440); RED BLOOD COUNT 4.72 X10'6 (4.70-6.10); RED CELL DISTRIBUTION WIDTH 14.1 % (11.5-14.5)
[2022-10-23 06:40] LABS: ALBUMIN 2.8 G/DL (3.4-5.0); ANION GAP 3 (8-16); BLOOD UREA NITROGEN 14 MG/DL (7-18); BUN/CREATININE RATIO 17.9 (10.0-20.0); CALCIUM 7.9 MG/DL (8.5-10.1); CHLORIDE 101 MMOL/L (99-107); CREATININE 0.78 MG/DL (0.60-1.10); GLUCOSE 100 MG/DL (70-104); POTASSIUM 4.2 MMOL/L (3.5-5.1); SODIUM 133 MMOL/L (135-145); TOTAL CARBON DIOXIDE 28.9 MMOL/L (24-32); eGFR > 90 ML/MIN
--- NOTE | 2022-10-23 06:59 | NUR ---
Patient in room ORTHO 4013. I have received report from JAQUELINE Bojorquez and had the opportunity to ask questions and assume patient care.
[2022-10-23] MEDS: docusate sod 100mg capsule PO SCH ×2 (08:14→18:51)
[2022-10-23] MEDS: HYDROcodone/acetaminophen 10/325mg tab PO PRN ×2 (08:15→23:22)
[2022-10-23] MEDS: dextrose 5%-1/2 normal saline 1,000 ML IV SCH ×3 (09:45→18:45)
[2022-10-23] MEDS ORDERED: BUPIVAcaine/PF 2.5 mg/ml (0.25%) 30ml vial ONE (15:05)
[2022-10-23] MEDS ORDERED: LIDOcaine 1% 30ml preserv. free vial ONE (15:05)
--- NOTE | 2022-10-23 15:08 | NUR ---
QUALITY ENGINEERING MANAGER documentation: I have reviewed and agree with all interventions, assessments performed and documented by Violet Velasquez LVN.
[2022-10-23] MEDS ORDERED: midazolam 1 mg/ML 2ml injection ONE (15:17)
[2022-10-23] MEDS ORDERED: fentaNYL/PF 50MCG/1 ML 2ML syringe ONE ×2 (15:17→15:59)
[2022-10-23] MEDS ORDERED: LIDOcaine 2% (20mg/ml) 5ml vial ONE (15:18)
[2022-10-23] MEDS ORDERED: propofol inj 20 ML IV ONE (15:18)
[2022-10-23] MEDS ORDERED: ondansetron/PF 4mg/2ml inj ONE (15:18)
[2022-10-23] MEDS ORDERED: hydrALAZINE 20mg/ml inj. IV PRN (15:20)
[2022-10-23] MEDS ORDERED: morphine 4 MG/ML inj SYRINge IV PRN (15:20)
[2022-10-23] MEDS ORDERED: morphine 2 MG/ML inj. syringe IV PRN (15:20)
[2022-10-23] MEDS ORDERED: fentaNYL/PF 50MCG/1 ML 2ML syringe IV PRN ×2 (15:20)
[2022-10-23] MEDS ORDERED: ondansetron/PF 4mg/2ml inj IV PRN (15:20)
[2022-10-23] MEDS ORDERED: ringers solution, lacted 1,000 ML IV SCH (15:20)
[2022-10-23] MEDS ORDERED: labetalol 20mg/4ml (5mg/ml) syringe IV PRN (15:20)
[2022-10-23] MEDS ORDERED: neostigmine methylsulfate 1 MG/ML 10ml vial ONE (15:33)
[2022-10-23] MEDS ORDERED: glycopyrrolate 0.2mg/ml inj ONE (15:33)
[2022-10-23] MEDS ORDERED: naloxone 0.4 mg/ml inj ONE (15:35)
[2022-10-23] MEDS ORDERED: rocuronium 10mg/ml inj IV ONE (15:35)
[2022-10-23] MEDS ORDERED: sevoflurane 250ml liquid IH ONE (15:35)
[2022-10-23] MEDS ORDERED: dexamethasone sod phosphate 10mg/ml inj ONE (15:35)
[2022-10-23] MEDS ORDERED: LIDOcaine 1% 30ml preserv. free vial IJ ONE (15:45)
[2022-10-23] MEDS ORDERED: BUPIVAcaine/PF 2.5 mg/ml (0.25%) 30ml vial IJ ONE (15:45)
[2022-10-23] MEDS ORDERED: ceFAZolin 1000mg inj ONE ×2 (15:59→16:03)
--- NOTE | 2022-10-23 17:20 | NUR ---
Received from OR via BED, accompanied by Anesthesiologist and report given by Anesthesiologist. PATIENT HAVING DIFFICULTY WAKING UP HTN DIFFICULTY BREATHING DR THOMPSON WILL GIVE REVERSAL AGENT AND IS AT BEDSIDE, NO S/S OF PAIN, , SCD ON, 20G TO RUE, ABDOMEN LAP SITE CLEAN W/ NO S/S OF COMPLICATIONS. F/C DRAINING CLEAR YELLOW URINE.
[2022-10-23] MEDS ORDERED: naloxone 0.4 mg/ml inj IV PRN (17:30)
[2022-10-23] MEDS ORDERED: sugammadex 200mg/2ml injection IV ONE (17:33)
[2022-10-23] MEDS ORDERED: albuterol 2.5 MG/3 ML nebule NEB ONE (17:40)
--- NOTE | 2022-10-23 17:42 | NUR ---
PATIENT MUCH IMPROVED RESPONDING TO QUESTIONS AND DIRECTION WELL, V/S STABLE BREATHING WITHOUT DIFFICULTY NOW AFTER REVERSAL AGENT GIVEN. RT PAGED FOR BREATHING TREATMENT.
--- NOTE | 2022-10-23 18:30 | NUR ---
Patent back from recovery yelling about his f/c and wanting it out. Stating that he is "going to rip it out, I don't need it". He started cursing. F/c removed for pt safety. He voided 100ml in urinal.
--- NOTE | 2022-10-23 18:30 | NUR ---
PATIENT A&OX4, , DENIES PAIN, , SCD ON, 20G TO RUE, ABDOMEN LAP SITE CLEAN W/ NO S/S OF COMPLICATIONS. F/C DRAINING CLEAR YELLOW URINE. TAKEN TO 4013B WITH ALL BELONGINGS AND HOOKED UP TO MONITORS IN ROOM AND REPORT GIVEN TO BUTTERMAKER CONTINUOUS CHURN WHO HAS TAKEN OVER PATIENT CARE.
[2022-10-23] MEDS: heparin, porcine 5000 units/ml vial SQ SCH (18:51)
--- NOTE | 2022-10-23 19:00 | NUR ---
Pt woke up complaining of left eye pain. Eye lid does appear red and puffy, he was advised to stop rubbing it. He feels like he has "something stuck" in his eye. Flushed with NS, MS was given. Pt upset and started cursing and took off Post op VS machine. Dr. Zelaya was phoned regarding pts eye. He came to examine eye, ordered more pain medication, eye drops, tele and to make sure he has oxygen. Charge nurse aware.
--- NOTE | 2022-10-23 20:31 | NUR ---
I had called Dr. Zelaya regarding pt's painful/swollen left eye lid and eye per pt's nurse Crystal; she had flushed the eye with saline flush and could not see anything in the eye. Asked him to come see patient and examine the eye and he referred me to ICU nurse. Dr. Zelaya did come to bedside and has ordered medications now.
[2022-10-23] MEDS ORDERED: HYDROmorphone 1 mg/ml syringe IV PRN (20:40)
[2022-10-23] MEDS ORDERED: HYDROmorphone inj. 0.5 MG/0.5 ML DISP.SYRIN IV PRN (20:40)
[2022-10-23] MEDS ORDERED: proparacaine 0.5% ophthalmic drops 15ml LEFTEYE ONE (20:50)
--- NOTE | 2022-10-23 21:00 | NUR ---
Problems reprioritized. Patient report given, questions answered & plan of care reviewed with Sally PARSONS.
--- NOTE | 2022-10-23 21:19 | NUR ---
Patient in room ORTHO 4013. I have received report from JAQUELINE Bojorquez and had the opportunity to ask questions and assume patient care.
--- NOTE | 2022-10-23 22:23 | NUR ---
Pt. refused his Post VS to be taken.We will continue with pt. care
[2022-10-23] MEDS: erythromycin ophthalmic ointment 1gm tube EACHEYE SCH (23:21)
[2022-10-24] MEDS: dextrose 5%-1/2 normal saline 1,000 ML IV SCH (03:36)
[2022-10-24] MEDS: erythromycin ophthalmic ointment 1gm tube EACHEYE SCH (04:13)
[2022-10-24 05:30] VITALS: BP 110/67
--- NOTE | 2022-10-24 05:53 | NUR ---
pt. walked with nursing 600F.he passed gas couple of times.
[2022-10-24 06:27] LABS: BASOPHILS % (AUTO) 0.1 % (0-1); EOSINOPHILS % (AUTO) 0 % (0-6); HEMATOCRIT 41.5 % (42.0-52.0); HEMOGLOBIN 13.8 g/dl (14.0-17.9); LYMPHOCYTES # (AUTO) 1.5 X10'3 (1.1-4.8); LYMPHOCYTES % (AUTO) 18.3 % (21-51); MEAN CORPUSCULAR HEMOGLOBIN 30.7 PG (27.0-31.0); MEAN CORPUSCULAR HGB CONC 33.3 g/dL (33.0-36.5); MEAN CORPUSCULAR VOLUME 92.3 FL (78-98); MONOCYTES % (AUTO) 12.1 % (2-12); NEUTROPHILS # (AUTO) 5.7 X10'3 (1.8-7.7); NEUTROPHILS % (AUTO) 69.5 % (42-75); PLATELET COUNT 192 X10'3 (140-440); RED CELL DISTRIBUTION WIDTH 13.8 % (11.5-14.5); WHITE BLOOD COUNT 8.2 X10'3 (4.5-11.0)
[2022-10-24 06:28] LABS: ALBUMIN 2.8 G/DL (3.4-5.0); ANION GAP 4 (8-16); BLOOD UREA NITROGEN 7 MG/DL (7-18); BUN/CREATININE RATIO 8.5 (10.0-20.0); CALCIUM 8.2 MG/DL (8.5-10.1); CHLORIDE 101 MMOL/L (99-107); CREATININE 0.82 MG/DL (0.60-1.10); GLUCOSE 119 MG/DL (70-104); POTASSIUM 4.8 MMOL/L (3.5-5.1); SODIUM 136 MMOL/L (135-145); TOTAL CARBON DIOXIDE 31.1 MMOL/L (24-32); eGFR > 90 ML/MIN
--- NOTE | 2022-10-24 06:30 | NUR ---
Patient in room [facility]TH[facility] 4013. I have received report from JAQUELINE Zavala and had the opportunity to ask questions and assume patient care.
--- NOTE | 2022-10-24 06:37 | NUR ---
Problems reprioritized. Patient report given, questions answered & plan of care reviewed with JAQUELINE Morelos.
[2022-10-24] MEDS ORDERED: tobramycin/dexamethasone ophthalmic suspension EACHEYE SCH (08:00)
[2022-10-24] MEDS: docusate sod 100mg capsule PO SCH ×2 (08:06→20:32)
[2022-10-24] MEDS: DEXAMETHASONE EACHEYE SCH ×3 (08:07→20:32)
[2022-10-24] MEDS: TOBRAMYCIN EACHEYE SCH ×3 (08:07→20:32)
[2022-10-24] MEDS: HYDROcodone/acetaminophen 10/325mg tab PO PRN ×4 (08:07→22:20)
[2022-10-24] MEDS: heparin, porcine 5000 units/ml vial SQ SCH ×2 (08:08→20:30)
[2022-10-24 10:00] VITALS: BP 137/86
[2022-10-24 18:00] VITALS: BP 117/83
--- NOTE | 2022-10-24 18:40 | NUR ---
Problems reprioritized. Patient report given, questions answered & plan of care reviewed with JAQUELINE Kaur.
[2022-10-24 22:20] VITALS: BP 157/94
[2022-10-25] MEDS: DEXAMETHASONE EACHEYE SCH ×4 (02:00→19:38)
[2022-10-25] MEDS: TOBRAMYCIN EACHEYE SCH ×4 (02:00→19:38)
[2022-10-25] MEDS: HYDROcodone/acetaminophen 10/325mg tab PO PRN ×2 (05:30→18:23)
[2022-10-25 06:00] VITALS: BP 119/86
[2022-10-25 06:09] LABS: ALBUMIN 2.8 G/DL (3.4-5.0); ANION GAP 4 (8-16); BLOOD UREA NITROGEN 8 MG/DL (7-18); BUN/CREATININE RATIO 9.3 (10.0-20.0); CALCIUM 8.3 MG/DL (8.5-10.1); CHLORIDE 102 MMOL/L (99-107); CREATININE 0.86 MG/DL (0.60-1.10); GLUCOSE 88 MG/DL (70-104); POTASSIUM 4.1 MMOL/L (3.5-5.1); SODIUM 138 MMOL/L (135-145); TOTAL CARBON DIOXIDE 31.6 MMOL/L (24-32); eGFR > 90 ML/MIN
[2022-10-25 06:13] LABS: BASOPHILS # (AUTO) 0.1 X10'3 (0-0.2); BASOPHILS % (AUTO) 0.6 % (0-1); EOSINOPHILS # (AUTO) 0.1 X10'3 (0-0.9); EOSINOPHILS % (AUTO) 1.3 % (0-6); HEMATOCRIT 44.1 % (42.0-52.0); HEMOGLOBIN 14.6 g/dl (14.0-17.9); LYMPHOCYTES # (AUTO) 2.9 X10'3 (1.1-4.8); LYMPHOCYTES % (AUTO) 31.7 % (21-51); MEAN CORPUSCULAR HEMOGLOBIN 30.7 PG (27.0-31.0); MEAN CORPUSCULAR HGB CONC 33.1 g/dL (33.0-36.5); MEAN CORPUSCULAR VOLUME 92.8 FL (78-98); MEAN PLATELET VOLUME 9.5 FL (7.4-10.4); MONOCYTES % (AUTO) 11.4 % (2-12); PLATELET COUNT 211 X10'3 (140-440); RED BLOOD COUNT 4.76 X10'6 (4.70-6.10); RED CELL DISTRIBUTION WIDTH 14.3 % (11.5-14.5); WHITE BLOOD COUNT 9.1 X10'3 (4.5-11.0)
--- NOTE | 2022-10-25 06:39 | NUR ---
Problems reprioritized. Patient report given, questions answered & plan of care reviewed with JAQUELINE CROCKETT.
--- NOTE | 2022-10-25 06:40 | NUR ---
Patient in room [facility]TH[facility] 4013. I have received report from AMANDA PARSONS and had the opportunity to ask questions and assume patient care.
[2022-10-25] MEDS: heparin, porcine 5000 units/ml vial SQ SCH ×2 (08:16→19:39)
[2022-10-25] MEDS: docusate sod 100mg capsule PO SCH ×2 (08:18→19:39)
[2022-10-25] MEDS: metoclopramide 5 mg/ml inj IV SCH ×3 (09:25→19:38)
[2022-10-25 10:00] VITALS: BP 130/73
--- NOTE | 2022-10-25 11:33 | NUR ---
patient very SOB on ambulation. O2 88%, recovered on 2L via NC to 94%. Page made to Dr rachel with regards RT tmt, will continue to monitor. patient given Reglan prune juice and MOM this am for constipation , no BM since october 13 per patient report.
[2022-10-25] MEDS ORDERED: albuterol 2.5 MG/3 ML nebule NEB PRN (12:55)
--- NOTE | 2022-10-25 13:24 | NUR ---
O2 Sat at rest on room air:90___% If below 89%: Recovery O2 Sat at rest on ___LPM:___%:___% via (mask/nasal cannula, etc..) No further documentation is necessary. If O2 Sat did not drop below 89% on room air,ambulate patient on room air. O2 Sat while ambulating on room air:_88__% Recovery O2 Sat while ambulating on __2_LPM:__94_% No further documentation is necessary. If patient does not drop below 89% while ambulating, he/she does not qualify for home O2.
--- NOTE | 2022-10-25 13:25 | NUR ---
patient had large BM
--- NOTE | 2022-10-25 18:51 | NUR ---
Problems reprioritized. Patient report given, questions answered & plan of care reviewed with Natasha PARSONS.
[2022-10-25 19:00] VITALS: BP 138/89
[2022-10-25 19:36] VITALS: BP 159/110
[2022-10-25] MEDS: furosemide 40mg/4ml inj IV SCH (19:38)
--- NOTE | 2022-10-25 21:37 | NUR ---
Problems reprioritized. Patient report given, questions answered & plan of care reviewed with Nona, RN.
--- NOTE | 2022-10-25 23:30 | NUR ---
Pt. is resting comfortably in bed no c/o pain or discomfort. Abd bandaid dressing dry and intact small amt of old drainage noted purple bruise also noted. Pt. is on 02 L NC intermittently off for BRP purposes 02S 97% on 2L. Did not to be waken at 2am for eye drops or IV med. RT in for breathing treatment every 4 hours. No c/o SOB overnight. Pt. plans on going home in am will possibly need home O2.
[2022-10-26] MEDS: metoclopramide 5 mg/ml inj IV SCH ×2 (02:00→07:21)
[2022-10-26] MEDS: TOBRAMYCIN EACHEYE SCH ×2 (02:00→08:00)
[2022-10-26] MEDS: DEXAMETHASONE EACHEYE SCH ×2 (02:00→08:00)
[2022-10-26 06:00] VITALS: BP 146/115
--- NOTE | 2022-10-26 06:30 | NUR ---
Patient in room [facility]TH[facility] 4013. I have received report from Nona RN and had the opportunity to ask questions and assume patient care.
[2022-10-26 06:39] LABS: ALBUMIN 3.2 G/DL (3.4-5.0); ANION GAP 8 (8-16); BLOOD UREA NITROGEN 13 MG/DL (7-18); BUN/CREATININE RATIO 17.6 (10.0-20.0); CALCIUM 8.6 MG/DL (8.5-10.1); CHLORIDE 98 MMOL/L (99-107); CREATININE 0.74 MG/DL (0.60-1.10); GLUCOSE 99 MG/DL (70-104); POTASSIUM 3.9 MMOL/L (3.5-5.1); SODIUM 138 MMOL/L (135-145); TOTAL CARBON DIOXIDE 31.9 MMOL/L (24-32); eGFR > 90 ML/MIN
[2022-10-26 06:42] LABS: BASOPHILS # (AUTO) 0.1 X10'3 (0-0.2); BASOPHILS % (AUTO) 0.8 % (0-1); EOSINOPHILS # (AUTO) 0.1 X10'3 (0-0.9); EOSINOPHILS % (AUTO) 1.5 % (0-6); HEMATOCRIT 48.6 % (42.0-52.0); HEMOGLOBIN 16.2 g/dl (14.0-17.9); LYMPHOCYTES # (AUTO) 2.5 X10'3 (1.1-4.8); LYMPHOCYTES % (AUTO) 25.9 % (21-51); MEAN CORPUSCULAR HEMOGLOBIN 30.8 PG (27.0-31.0); MEAN CORPUSCULAR HGB CONC 33.3 g/dL (33.0-36.5); MEAN CORPUSCULAR VOLUME 92.5 FL (78-98); MEAN PLATELET VOLUME 9.8 FL (7.4-10.4); MONOCYTES # (AUTO) 1.3 X10'3 (0-0.9); MONOCYTES % (AUTO) 13.4 % (2-12); NEUTROPHILS # (AUTO) 5.6 X10'3 (1.8-7.7); NEUTROPHILS % (AUTO) 58.4 % (42-75); PLATELET COUNT 226 X10'3 (140-440); RED BLOOD COUNT 5.26 X10'6 (4.70-6.10); RED CELL DISTRIBUTION WIDTH 14.1 % (11.5-14.5); WHITE BLOOD COUNT 9.5 X10'3 (4.5-11.0)
[2022-10-26] MEDS: furosemide 40mg/4ml inj IV SCH (07:27)
[2022-10-26] MEDS: heparin, porcine 5000 units/ml vial SQ SCH (08:00)
[2022-10-26] MEDS: docusate sod 100mg capsule PO SCH (08:00)
[2022-10-26 10:00] VITALS: BP 86/62
--- NOTE | 2022-10-26 10:30 | NUR ---
I have reviewed and agree with interventions, assessments. and documentation by Kim Goodson LVN
[2022-10-26] MEDS ORDERED: HYDR-3965 PO (10:46)
[2022-10-26] MEDS ORDERED: FURO40TA4 PO (10:46)
--- NOTE | 2022-10-26 11:42 | NUR ---
pt dc to home, pt escorted to private vehicle driven by friend by staff via wheelchair. PIV DC with no complications or s/sx of infiltration noted. Pt VSS, alert, oriented and appropriate at time of DC. Pt verbally agreeable to all DC education and instructions provided. Pt understands to call Dr Gibbs office for post op f/u appointment scheduling. Prescriptions transmitted to [facility]. Pt belongings all accounted for at time of dc.
== END 2022-10-26 11:50 | disposition home or self-care (01) | DRG 228 ==
LOC: ER 09:17 → ED HOLD 13:46 → EDBEDREQ 14:02 → ORTHO 4S 15:26
PROVIDERS: ADMIT Internal Medicine; ATTEND Internal Medicine
PROC: 0D9670Z Drainage of Stomach with Drainage Device, Via Natural or Artificial Opening (ICD-10-PCS; 2022-10-22)
PROC: 8E0W4CZ Robotic Assisted Procedure of Trunk Region, Percutaneous Endoscopic Approach (ICD-10-PCS; 2022-10-23)
PROC: 0YU54JZ Supplement Right Inguinal Region with Synthetic Substitute, Percutaneous Endoscopic Approach (ICD-10-PCS; principal; 2022-10-23 15:35)
DX: K40.30 Unilateral inguinal hernia, with obstruction, without gangrene, not specified as recurrent (principal); I50.33 Acute on chronic diastolic (congestive) heart failure; E87.1 Hypo-osmolality and hyponatremia; F15.90 Other stimulant use, unspecified, uncomplicated; J44.9 Chronic obstructive pulmonary disease, unspecified; Z60.2 Problems related to living alone; R45.1 Restlessness and agitation; H57.12 Ocular pain, left eye; L40.9 Psoriasis, unspecified; Z72.0 Tobacco use; Z79.899 Other long term (current) drug therapy; Z85.6 Personal history of leukemia; Z56.0 Unemployment, unspecified; Z63.8 Other specified problems related to primary support group
CPT/HCPCS: 36415; 71045; 74176; 80048; 80053; 80305; 80320; 81001; 82948; 83690; 83880; 85025; 87081; 93005; 93306; 94640; 94664; 94760; 99285; A4215; A4615; A4618; C1781; G0378; J0690; J1100; J1170; J1644; J1940; J2250; J2270; J2310; J2405; J2704; J2710; J2765; J3010; J3490; J7030; J7070